=== PATIENT | female | born 1950 | race Caucasian/White ===

== ENCOUNTER 2017-09-14 11:52 | Inpatient (IN) ==
[2017-09-14] MEDS ORDERED: methylPREDNISolone 125 MG/2 ML VIAL IVP ONE (12:06)
[2017-09-14] MEDS ORDERED: Ipratropium/Albuterol Neb 3 ML IH ONE (12:06)
--- NOTE | 2017-09-14 12:21 | Emergency Department Note ---
Disposition Clinical Impression: Community acquired pneumonia Disposition: Admitted As Inpatient Condition: Good Referrals: Freddy Swann Jr, MD [Primary Care Provider] - Forms: ED Satisfaction Letter SOB HPI - General Chief Complaint: ED Shortness of Breath/Dyspnea Stated Complaint: LETICIA Time Seen by Provider: 09/14/17 11:57 Source: patient Mode of arrival: private vehicle Limitations: no limitations Nursing Notes Reviewed: Yes Vital Signs Reviewed: Yes - History of Present Illness 66-year-old female history of COPD on chronic steroids and Zithromax who presents to the ER due to shortness of breath. Patient reports she has had shortness of breath as well as a cough for 10 days. Denies any fevers at home. Denies chest pain. States that she has been desaturating at home and to the 70s. She does wear 2 L at night. She spoke with her nutrition and dietetics instructor who encouraged her to come in for evaluation. She denies a prior history of intubation, CPAP or BiPAP. Denies history of DVT or PE. No other complaints. Pt Subjective Complaint: shortness of breath, cough Onset (ago): day(s) Context: recent illness Severity: moderate Consistency/Duration: constant Improves with: nothing Worsens with: nothing Known history of: COPD Associated symptoms: Reports: cough. Denies: chest pain, fever Treatment prior to arrival: bronchodilator Cough present: Yes Cough Description: Involuntary Cough Frequency: Intermittent Sputum production: No - Related Data Home oxygen amount: 2 liters (At night) Home Medications Medication Instructions Recorded Confirmed Albuterol Sulfate [Proair HFA] 2 puff IH Q4HR PRN 07/08/15 09/14/17 Budesonide/Formoterol 160/4.5 2 puff IH BIDR 07/08/15 09/14/17 [Symbicort] Calcium Carbonate 1,200 mg PO BID 07/08/15 09/14/17 Ipratropium/Albuterol Neb [Duoneb] 3 ml IH Q6HR PRN 07/08/15 09/14/17 Multivitamin [Flintstones] 1 each PO DAILY 07/08/15 09/14/17 Biotin 1 tab PO DAILY 08/28/16 09/14/17 Fluticasone Propionate Nasal 1 spray NS BID 08/28/16 09/14/17 [Flonase] Potassium 595 mg PO DAILY 08/28/16 09/14/17 Triamterene/Hydrochlorothiazid 1 tab PO DAILY 08/28/16 09/14/17 [Triamterene-Hctz 37.5-25 mg Cp] Umeclidinium [place] [Incruse 1 puff IH DAILY 08/28/16 09/14/17 Ellipta] Azithromycin [Zithromax] 250 mg PO DAILY 09/05/16 09/14/17 Loteprednol Etabonate [Alrex] 1 drop BOTH EYES BID 09/14/17 09/14/17 Roflumilast [Daliresp] 500 mcg PO DAILY 09/14/17 09/14/17 predniSONE [PredniSONE] See Taper PO DAILY 09/14/17 09/14/17 Allergies Allergy/AdvReac Type Severity Reaction Status Date / Time octinoxate Allergy Mild Rash Verified 08/28/16 08:26 sodium bicarbonate Allergy Unknown Gastrointestinal Verified 08/28/16 08:26 [From [facility]] Upset aspirin [From [place]] AdvReac Mild Nausea Verified 08/28/16 08:26 citric acid AdvReac Mild Nausea Verified 08/28/16 08:26 [From [place]] All systems ED: reviewed and negative except as stated. Constitutional: Denies: fever Cardiovascular: Denies: chest pain Respiratory: Reports: cough, dyspnea Gastrointestinal: Denies: abdominal pain, nausea, vomiting Past Medical History - Past Medical History Attestation: Yes The following information was validated with the patient. Source: patient Medical history: Reports: arthritis, cancer, COPD Surgical history: Reports: other Psychiatric history: Reports: no psych history - Social History Smoking Status: Never smoker Smokeless Tobacco Status: No Alcohol use: Reports: occasionally Drug use: Reports: none Physical Exam - General Limitations: no limitations General appearance: alert, in no apparent distress - Head Head exam: atraumatic, normocephalic - Eye Eye exam: Present: normal appearance - ENT ENT exam: normal exam - Neck Neck exam: Present: normal inspection, full ROM - Chest Chest inspection: Present: normal inspection, symmetric chest wall rise - Respiratory Respiratory exam: Present: wheezes (Mild end-expiratory wheezing right greater than left), prolonged expiratory phase - Cardiovascular Cardiovascular exam: Present: normal rhythm, tachycardia, normal heart sounds - Abdominal Exam Abdominal exam: Present: soft, Non-Tender. Absent: tenderness - Extremities Exam Extremities exam: Present: normal inspection, full ROM - Expanded Upper Extremity Exam Shoulder exam: Present: normal inspection, full ROM Arm exam: Present: normal inspection, full ROM Elbow exam: Present: normal inspection, full ROM Forearm/Wrist exam: Present: normal inspection, full ROM Hand exam: Present: normal inspection, full ROM - Expanded Lower Extremity Exam Hip/Pelvis exam: Present: normal inspection, full ROM Upper leg exam: Present: normal inspection, full ROM Knee exam: Present: normal inspection, full ROM Lower leg exam: Present: normal inspection, full ROM Ankle exam: Present: normal inspection, full ROM Foot/toe exam: Present: normal inspection, full ROM - Neurological Exam Neurological exam: Present: alert, other (GCS 15. Nonfocal.) - Psychiatric Psychiatric exam: Present: normal affect - Skin Skin exam: Present: warm, dry Course Course Narrative: Patient seen and examined. Vital signs reviewed. We will order DuoNeb treatments as well as IV Solu-Medrol, EKG chest x-ray and labs. Vital Signs Temperature 99.0 F 09/14/17 11:53 Pulse Rate 113 09/14/17 11:53 Respiratory Rate 26 09/14/17 11:53 Blood Pressure 154/85 09/14/17 11:53 O2 Sat by Pulse Oximetry 93 09/14/17 11:53 Temperature 99.0 F 09/14/17 11:53 Pulse Rate 89 09/14/17 16:25 Respiratory Rate 16 09/14/17 16:25 Blood Pressure 129/68 09/14/17 16:25 O2 Sat by Pulse Oximetry 94 09/14/17 16:25 Oxygen Delivery Oxygen Delivery Room Air Shortness of Breath/Dyspnea - [facility] Narrative Medical decision making narrative: 66-year-old female history of COPD presents to the ER due to shortness of breath or cough. Has been on chronic steroids and followed by pulmonology here. Patient was evaluated by pulmonology in the ED recommending a respiratory panel and CT of the chest. CTA demonstrates no PE however bilateral lower lobe infiltrates. Patient given a dose of Levaquin. She is otherwise hemodynamically stable and admitted to the hospitalist service with pulmonology consultation. This documentation is done with the assistance of Dragon dictation. Despite efforts to ensure accuracy, there may be inaccuracies in drop forger helper or spelling and typographical errors. I examined this patient and my medical decision-making was reviewed with the Resident Physician. I agree with the documented findings, disposition and treatment plan as described except to the extent set forth below. Patient seen and evaluated by Dr. Villarreal and myself, agree with his admission management plan, supervised care the patient's stay. Patient has a long history of COPD. Last week she has been having increased coughing. She is on daily prednisone and azithromycin. She sees pulmonology here. Start treatments on her here. Pulmonology said they would see her in the emergency department. Most likely she will need admission. 1245 hrs.: Wire Strander seen the patient emergency department. They wanted an RIP panel, CT of the chest rule out PE and a low dose of steroids. Chest X-Ray 09/14/17 11:57 IMPRESSION: Subtle left basilar opacity that may represent atelectasis versus early pneumonia. Recommend clinical correlation and follow-up to resolution. Findings of COPD and emphysema. D/ / Patricio Main MD / Patricio Main MD Interpreting Provider: Patricio Main MD Chest CTA 09/14/17 12:36 IMPRESSION: 1. No acute pulmonary embolus. 2. Patchy consolidation in both lower lobes concerning for pneumonia. Aspiration should be considered. 3. Moderate emphysema. D/ / 09/14/2017 14:46:10 Panchito Hogan MD / hector Interpreting Provider: Panchito Hogan MD 1500 hrs.: We will go ahead and bring her into the hospital. She has been on chronic azithromycin so we will switch her to Levaquin. And we will speak with hospitalist and probably consult pulmonology. Patient's in agreement with plan for admission. - Lab Data Lab results reviewed: Yes I reviewed the patient's lab results. Result diagrams: 09/14/17 12:19 09/14/17 12:19 Lab Results 09/14/17 09/14/17 09/14/17 Range/Units 12:19 12:19 12:19 WBC 17.8 H (4.3-11.1) K/mcL RBC 4.74 (3.82-4.97) M/mcL Hgb 15.8 H (11.5-15.4) g/dL Hct 45.7 H (35.3-44.9) % MCV 96.4 (83.0-100.0) fL MCH 33.3 (28.0-33.3) pg MCHC 34.6 (31.6-35.5) g/dL RDW 12.4 (11.5-14.5) % Plt Count 243 (140-400) K/mcL MPV 9.1 L (9.4-12.4) fL Immature Gran % 0.6 (0-4) % Seg Neutrophils % 94.0 % Lymphocytes % 1.5 % Monocytes % 3.7 % Eosinophils % 0.0 % Basophils % 0.2 % Neutrophils # 16.7 H (1.6-8.9) K/mcL Lymphocytes # 0.3 L (0.6-4.6) K/mcL Monocytes # 0.7 (0.0-1.3) K/mcL Eosinophils # 0.0 (0.0-0.6) K/mcL Basophils # 0.0 (0.0-0.2) K/mcL Sodium 134 L (136-145) mEq/L Potassium 3.5 (3.5-5.1) mEq/L Chloride 97 L (98-107) mEq/L Carbon Dioxide 27 (23-29) mEq/L BUN 12 (8-23) mg/dL Creatinine 0.89 (0.60-1.20) mg/dL Est GFR ( Amer) > 60 (> 60) Est GFR (Non-Af Amer) > 60 (> 60) BUN/Creatinine Ratio 13 (6-26) Glucose 182 H (70-105) mg/dL Calculated Osmolality 282 (280-300) Calcium 10.4 H (8.6-10.3) mg/dL Troponin I < 0.03 (< 0.04) ng/mL B-Natriuretic Peptide (Less than 100) pg/mL 09/14/17 Range/Units 12:19 WBC (4.3-11.1) K/mcL RBC (3.82-4.97) M/mcL Hgb (11.5-15.4) g/dL Hct (35.3-44.9) % MCV (83.0-100.0) fL MCH (28.0-33.3) pg MCHC (31.6-35.5) g/dL RDW (11.5-14.5) % Plt Count (140-400) K/mcL MPV (9.4-12.4) fL Immature Gran % (0-4) % Seg Neutrophils % % Lymphocytes % % Monocytes % % Eosinophils % % Basophils % % Neutrophils # (1.6-8.9) K/mcL Lymphocytes # (0.6-4.6) K/mcL Monocytes # (0.0-1.3) K/mcL Eosinophils # (0.0-0.6) K/mcL Basophils # (0.0-0.2) K/mcL Sodium (136-145) mEq/L Potassium (3.5-5.1) mEq/L Chloride (98-107) mEq/L Carbon Dioxide (23-29) mEq/L BUN (8-23) mg/dL Creatinine (0.60-1.20) mg/dL Est GFR ( Amer) (> 60) Est GFR (Non-Af Amer) (> 60) BUN/Creatinine Ratio (6-26) Glucose (70-105) mg/dL Calculated Osmolality (280-300) Calcium (8.6-10.3) mg/dL Troponin I (< 0.04) ng/mL B-Natriuretic Peptide 69 (Less than 100) pg/mL - Radiology Data Radiology results reviewed: Yes I reviewed the patient's radiology results. Chest X-Ray 09/14/17 11:57 IMPRESSION: Subtle left basilar opacity that may represent atelectasis versus early pneumonia. Recommend clinical correlation and follow-up to resolution. Findings of COPD and emphysema. D/ / Patricio Main MD / Patricio Main MD Interpreting Provider: Patricio Main MD Chest CTA 09/14/17 12:36 IMPRESSION: 1. No acute pulmonary embolus. 2. Patchy consolidation in both lower lobes concerning for pneumonia. Aspiration should be considered. 3. Moderate emphysema. D/ / 09/14/2017 14:46:10 Panchito Hogan MD / raisarttalita Interpreting Provider: Panchito Hogan MD - EKG Data EKG attestation: Yes I reviewed and interpreted this EKG. EKG results narrative: EKG demonstrates sinus tachycardia with rate of 103. Normal axis. Normal intervals. Normal R-wave progression. No gross ST elevations or depressions. No acute ischemic findings. No significant changes from previous EKG dated .
[2017-09-14 12:26] LABS: Basophils % 0.2 %; Hematocrit 45.7 % (35.3-44.9); Hemoglobin 15.8 g/dL (11.5-15.4); Immature Granulocytes % 0.6 % (0-4); Lymphocytes # 0.3 K/mcL (0.6-4.6); Lymphocytes % 1.5 %; Mean Corpuscular HGB Conc 34.6 g/dL (31.6-35.5); Mean Corpuscular Hemoglobin 33.3 pg (28.0-33.3); Mean Corpuscular Volume 96.4 fL (83.0-100.0); Mean Platelet Volume 9.1 fL (9.4-12.4); Monocytes # 0.7 K/mcL (0.0-1.3); Monocytes % 3.7 %; Neutrophils # 16.7 K/mcL (1.6-8.9); Platelet Count 243 K/mcL (140-400); Red Blood Count 4.74 M/mcL (3.82-4.97); Red Cell Distribution Width 12.4 % (11.5-14.5)
[2017-09-14] MEDS ORDERED: 0.9 % Sodium Chloride 500 ML IVC ONE (12:37)
[2017-09-14 12:42] LABS: BUN/Creatinine Ratio 13 (6-26); Blood Urea Nitrogen 12 mg/dL (8-23); Calcium 10.4 mg/dL (8.6-10.3); Carbon Dioxide 27 mEq/L (23-29); Chloride 97 mEq/L (98-107); Glucose 182 mg/dL (70-105); Osmolality,Calculated 282 (280-300); Potassium 3.5 mEq/L (3.5-5.1); Sodium 134 mEq/L (136-145); eGFR For African Americans > 60 (> 60); eGFR For Non-African Americans > 60 (> 60)
--- NOTE | 2017-09-14 12:50 | Pulmonology Consult Note ---
Date of Encounter: 09/14/17 Time of Encounter: 12:49 Assessment and Plan (1) Acute and chronic respiratory failure with hypoxia Current Visit: Yes Status: Acute I suspect this is secondary to COPD exacerbation from likely Infectiou etiology. Given Dyspnea and hypoxia and tachycardia (in context of COPD exacerbation she is also at risk for pulmonary embolism. Plan checking kidney function and normal would proceed with CTA of the lungs to rule out PE was also lost to further evaluate underlying lung parenchyma Send respiratory infectious panel Send sputum and blood cultures Recommend starting empiric ceftriaxone or respiratory respiratory fluoroquinolone such as levaquin Continue supplemental oxygen to keep saturation greater than 88% to around 92% Recommend admission to admitting hospitalist service for further evaluation given chronicity/severity of symptoms CT PE negative would need routine DVT prophylaxis unless contraindication arises Further recommendations depending upon CT findings (2) COPD with exacerbation Current Visit: Yes Status: Acute Start IV Solu-Medrol 60 mg 3 times a day Scheduled dual meds every 4 hours with every one hour albuterol as needed Start acetylcysteine 600 mg PO twice a day Hold azithromycin (3) Tachycardia Current Visit: Yes Status: Acute Severe sinus and is likely related to anxiety hypoxia work of breathing. She is at risk for PE and cardiac causes of dyspnea as outlined above recommend checking troponin and BNP if not already done so Pulmonary will continue to follow History of Present Illness Consult date: 09/14/17 Requesting physician: Dieter Villarreal Reason for consult: COPD Chief complaint: Shortness of Breath History of present illness: This is a 66-year-old woman with a history of advanced COPD on multiple medications for severe chronic bronchitis include Daliresp and chronic azithromycin therapy. Over the last 10 days she says that she has felt increasing shortness of breath and has noticed that her oxygen saturation has been dropping down with exertion including going up and down stairs. About this time she was started on 40 mg of prednisone daily and despite this therapy she has not improved. She denies sick contacts fever chills she has no sick cough but not productive of sputum. She denies sick contacts or recent travel no hemoptysis weight loss or lower extremity swelling she denies chest pain. I daily the patient emergency department she is requiring 2-3 L to keep saturation around 93-95% she is tachycardic and appears dyspneic on exam but able to speak in full sentences. Past Med Surg Social Fam HX - Past Medical History Medical history: arthritis, cancer, COPD Psychiatric history: no psych history - Past Surgical History Surgical History: other - Social History Smoking Status: Never smoker Smokeless Tobacco Status: No Alcohol use: occasionally Drug use: none - Family History Son Adopted: No Family Member Ethnicity: Non- Living Status: Still Living Hx Family Cardiac Disorders: Yes Hx Family Respiratory Disorders: No Hx Family Cancer: No Hx Family GI Disorders: No Hx Family Endocrine Disorder: No Hx Family Neuromuscular Disorders: No Hx Family Neurologic Disorders: No Hx Family HEENT Disorders: No Hx Family Autoimmune Disorders: No Medications and Allergies Albuterol Sulfate [Proair HFA] 2 puff IH Q4HR PRN 07/08/15 [History] Budesonide/Formoterol 160/4.5 [Symbicort] 2 puff IH BIDR 07/08/15 [History] Calcium Carbonate 1,200 mg PO BID 07/08/15 [History] Ipratropium/Albuterol Neb [Duoneb] 3 ml IH Q6HR PRN 07/08/15 [History] Multivitamin [Flintstones] 1 each PO DAILY 07/08/15 [History] Ammonium Lactate [Mansi-Hydrolac] 1 appl TP BID 08/28/16 [History] Biotin 1 tab PO DAILY 08/28/16 [History] Fluticasone Propionate Nasal [Flonase] 1 spray NS BID 08/28/16 [History] Potassium 595 mg PO DAILY 08/28/16 [History] PrednisoLONE [Millipred] 10 mg PO DAILY 08/28/16 [History] Triamterene/Hydrochlorothiazid [Triamterene-Hctz 37.5-25 mg Cp] 1 tab PO DAILY 08/28/16 [History] Umeclidinium [place] [Incruse Ellipta] 1 puff IH DAILY 08/28/16 [History] Azithromycin [Zithromax] 250 mg PO DAILY 09/05/16 [History] Vitamin C 500 mg PO DAILY 09/05/16 [History] 3 Allergy/AdvReac Type Severity Reaction Status Date / Time octinoxate Allergy Mild Rash Verified 08/28/16 08:26 sodium bicarbonate Allergy Unknown Gastrointestinal Verified 08/28/16 08:26 [From [facility]] Upset aspirin [From [facility]] AdvReac Mild Nausea Verified 08/28/16 08:26 citric acid AdvReac Mild Nausea Verified 08/28/16 08:26 [From Cj] All Systems: A 10-system review of systems was performed and is negative for pertinent findings except as documented above in the HPI. Physical Examination Vital Signs: Vital Signs, Last 4 Hours Temp Pulse Resp BP Pulse Ox 09/14/17 12:45 16 97 09/14/17 12:27 92 18 129/60 93 09/14/17 12:06 94 09/14/17 11:53 99.0 F 113 26 154/85 93 General appearance: appears uncomfortable Eyes: nonicteric ENT: oropharynx dry Neck: supple Effort: mildly labored Auscultation: bilateral: wheezes (Faint expiratory wheezes), rhonchi (Scattered rhonchi appreciated) Cardiovascular: other (Rapid rate regular rhythm) Gastrointestinal: normoactive bowel sounds, soft, non-tender Integumentary: normal Extremities: no cyanosis, no edema, no clubbing Musculoskeletal: no deformities normal mental status, non-focal exam Results - Laboratory Findings CBC and BMP: 09/14/17 12:19 09/14/17 12:19 Abnormal lab findings: Abnormal lab results WBC 17.8 K/mcL (4.3-11.1) H 09/14/17 12:19 Hgb 15.8 g/dL (11.5-15.4) H 09/14/17 12:19 Hct 45.7 % (35.3-44.9) H 09/14/17 12:19 MPV 9.1 fL (9.4-12.4) L 09/14/17 12:19 Neutrophils # 16.7 K/mcL (1.6-8.9) H 09/14/17 12:19 Lymphocytes # 0.3 K/mcL (0.6-4.6) L 09/14/17 12:19 Sodium 134 mEq/L (136-145) L 09/14/17 12:19 Chloride 97 mEq/L (98-107) L 09/14/17 12:19 Glucose 182 mg/dL (70-105) H 09/14/17 12:19 Calcium 10.4 mg/dL (8.6-10.3) H 09/14/17 12:19 - Clinical Findings Intake & Output: Intake & Output 09/13/17 09/14/17 09/14/17 23:59 07:59 15:59 Weight 65.771 kg Consult Discharge Plan - Plan Referrals: Freddy Swann Jr, MD [Primary Care Provider] -
[2017-09-14] MEDS ORDERED: Ibuprofen 600 MG TABLET PO ONE (13:30)
[2017-09-14] MEDS ORDERED: Levofloxacin 750 MG/150 ML 750 MG/150 ML BAG IVPB ONE (14:56)
--- NOTE | 2017-09-14 16:19 | Internal Med History&Physical ---
Date of Encounter: 10/12/17 Time of Encounter: 16:19 Assessment and Plan (1) Acute and chronic respiratory failure with hypoxia Status: Acute Most likely secondary to COPD exacerbation from likely Infectious etiology. CTA of the lungs to rule out PE was obtained and revealed , No acute pulmonary embolus. Patchy consolidation in both lower lobes concerning for pneumonia. Aspiration should be considered. Moderate emphysema.also lost to further evaluate underlying lung parenchyma Obtain sputum and blood cultures Started on empiric antibiotic coverage levaquin Continue supplemental oxygen to keep saturation greater than 88% to around 92% (2) Community acquired pneumonia Status: Acute *Pneumonia - infiltrate on CTA - O2 to keep SpO2 higher than 92% (SpO higher than 95% if CAD) - CBCD, BMP in AM - Sputum Gram stain, C+S - Tylenol 650 mg PO q 4-6 hr PRN pain/fever - Heparin 5000 U SQ BID - Home meds - check the list and restart - Antibiotics Qualifiers: Laterality: unspecified laterality Qualified Code(s): J18.9 - Pneumonia, unspecified organism (3) COPD with exacerbation Status: Acute - SOB due to COPD exacerbation caused by URTI *Pneumonia - infiltrate on CTA PLAN: - Aerosols q 4 hr and PRN SOB - Solu-medrol 40 mg IV q 6 hr - O2 to keep SpO2 higher than 92% (SpO higher than 95% if CAD) - CBCD, BMP in AM - Sputum Gram stain, C+S - Tylenol 650 mg PO q 4-6 hr PRN pain/fever - Heparin 5000 U SQ BID - Home meds - check the list and restart - Antibiotics (4) Tachycardia Status: Resolved CTA of the chest was ordered to rule out PE and was negative, (5) DVT prophylaxis Status: Acute Starting subcutaneous heparin 5000 units twice a day Internal Medicine - H&P: HPI Chief complaint: SOB History of present illness: Ms. Mobley is a 66 year old female with a history of advanced COPD on multiple medications for severe chronic bronchitis include Daliresp and chronic azithromycin therapy who presented with 10 days history of progressively worsening shortness of breath associated with nonproductive cough and hypoxia specifically with exertion . She was started an outpatient on 40 mg of prednisone daily with no significant improvement. . She was evaluated by the ER staff and it was noted that she is requiring 2-3 L to keep saturation around 93-95% and tachycardia, the patient was admitted for further evaluation and management. Past Med Surg Social Fam HX - Past Medical History Medical history: arthritis, cancer, COPD Psychiatric history: no psych history - Past Surgical History Surgical History: other - Social History Smoking Status: Never smoker Smokeless Tobacco Status: No Alcohol use: occasionally Drug use: none - Family History Son Adopted: No Family Member Ethnicity: Non- Living Status: Still Living Hx Family Cardiac Disorders: Yes Hx Family Respiratory Disorders: No Hx Family Cancer: No Hx Family GI Disorders: No Hx Family Endocrine Disorder: No Hx Family Neuromuscular Disorders: No Hx Family Neurologic Disorders: No Hx Family HEENT Disorders: No Hx Family Autoimmune Disorders: No Internal Medicine - H&P: Meds Albuterol Sulfate [Albuterol Inhaler] 2 puff IH Q4HR PRN 07/08/15 [History] Budesonide/Formoterol 160/4.5 [Symbicort 160/4.5] 2 puff IH BIDR 07/08/15 [ History] Calcium Carbonate 1,200 mg PO DAILY 07/08/15 [History] Ipratropium/Albuterol Neb [Duoneb] 3 ml IH Q6HR PRN 07/08/15 [History] Multivitamin [Flintstones] 1 each PO DAILY 07/08/15 [History] Biotin 1 tab PO DAILY 08/28/16 [History] Fluticasone Propionate Nasal [Flonase] 1 spray NS BID 08/28/16 [History] Potassium 99 mg PO DAILY 08/28/16 [History] Triamterene/Hydrochlorothiazid [Triamterene-Hctz 37.5-25 mg Cp] 1 tab PO DAILY 08/28/16 [History] Umeclidinium [place] [Incruse Ellipta] 1 puff IH DAILY 08/28/16 [History] Loteprednol Etabonate [Alrex] 1 drop BOTH EYES BID 09/14/17 [History] Roflumilast [Daliresp] 500 mcg PO DAILY 09/14/17 [History] Azithromycin 250 mg PO DAILY #0 09/29/17 [Rx] Doxycycline 100 mg PO BID #9 capsule 09/29/17 [Rx] Patient Taking Own Medication 1 each OP BID each 09/29/17 [Rx] predniSONE [PredniSONE] 40 mg PO DAILY 15 Days tablet 09/29/17 [Rx] 3 Allergy/AdvReac Type Severity Reaction Status Date / Time octinoxate Allergy Mild Rash Verified 09/24/17 14:40 aspirin [From [facility]] AdvReac Mild Nausea Verified 09/24/17 14:40 citric acid AdvReac Mild Nausea Verified 09/24/17 14:40 [From [facility]] sodium bicarbonate AdvReac Unknown Gastrointestinal Verified 09/24/17 14:40 [From [facility]] Upset All Systems PM: A 10-system review of systems was performed and is negative for pertinent findings except as documented above in the HPI. - Constitutional Constitutional: fatigue, no chills, no fever(s), no night sweats - Cardiovascular Cardiovascular ROS IM: dyspnea, no chest pain, no diaphoresis, no lightheadedness, no palpitations, no syncope - Respiratory Respiratory: cough, dyspnea, wheezing, no excessive phlegm production - Gastrointestinal Gastrointestinal: no abdominal pain, no diarrhea, no hematemesis, no hematochezia, no melena, no nausea, no vomiting - Neurological Neurological ROS: no confusion, no convulsions, no focal weakness, no numbness, no tingling, no tremor(s) - Constitutional Vitals: Temp Pulse Resp BP Pulse Ox 99.0 F 99 20 127/48 93 09/14/17 11:53 09/14/17 13:42 09/14/17 13:42 09/14/17 13:42 09/14/17 13:42 General appearance: Present: A&O X 3 - Head Head exam: Present: atraumatic, normocephalic - Neck Neck exam general surgery: Present: supple, trachea midline. Absent: lymphadenopathy - Respiratory Respiratory exam: Present: rhonchi, wheezes. Absent: accessory muscle use, rales - Cardiovascular Cardiovascular exam: Present: RRR, +S1, +S2. Absent: diastolic murmur, gallop, rubs, systolic murmur - GI/Abdominal GI/Abdominal exam: Present: normal bowel sounds, soft, no peritoneal signs. Absent: distended, tenderness - Extremities Exam Extremities exam: Present: warm, radial pulses palpable and symmetrical. Absent : calf tenderness, cyanotic, pedal edema Internal Med - H&P Results - Labs CBC & Chem 7: 09/16/17 07:05 09/16/17 07:05 Labs: Short CBC 09/14/17 Range/Units 12:19 WBC 17.8 H (4.3-11.1) K/mcL Hgb 15.8 H (11.5-15.4) g/dL Hct 45.7 H (35.3-44.9) % Plt Count 243 (140-400) K/mcL Neutrophils # 16.7 H (1.6-8.9) K/mcL BMP 09/14/17 12:19 Sodium 134 L Potassium 3.5 Chloride 97 L Carbon Dioxide 27 BUN 12 Creatinine 0.89 Glucose 182 H Calcium 10.4 H Cardiac Enzymes 09/14/17 Range/Units 12:19 Troponin I < 0.03 (< 0.04) ng/mL - Impressions ITS Impressions Chest X-Ray 09/14/17 11:57 IMPRESSION: Subtle left basilar opacity that may represent atelectasis versus early pneumonia. Recommend clinical correlation and follow-up to resolution. Findings of COPD and emphysema. D/ / Patricio Main MD / Patricio Main MD Interpreting Provider: Patricio Main MD Chest CTA 09/14/17 12:36 IMPRESSION: 1. No acute pulmonary embolus. 2. Patchy consolidation in both lower lobes concerning for pneumonia. Aspiration should be considered. 3. Moderate emphysema. D/ / 09/14/2017 14:46:10 Panchito Hogan MD / hector Interpreting Provider: Panchito Hogan MD
[2017-09-14] MEDS: Ipratropium/Albuterol Neb 3 ML IH SCH ×2 (20:05→23:11)
[2017-09-14] MEDS: Fluticasone Propionate Nasal 50 MCG/SPRAY BOTTLE NS SCH (21:02)
[2017-09-14] MEDS: LOTEPREDNOL ETABONATE OP SCH (21:04)
[2017-09-14 22:16] LABS: Adenovirus Not Detected (Not Detect); Bordetella Pertussis Not Detected (Not Detect); Chlamydophila pneumoniae Not Detected (Not Detect); Coronavirus 229E Not Detected (Not Detect); Coronavirus HKU1 Not Detected (Not Detect); Coronavirus NL63 Not Detected (Not Detect); Coronavirus OC43 Not Detected (Not Detect); Human Metapneumovirus Not Detected (Not Detect); Human Rhinovirus/Enterovirus Not Detected (Not Detect); Influenza A Subtype 2009 H1 Not Detected (Not Detect); Influenza A Untypeable Not Detected (Not Detect); Influenza B Not Detected (Not Detect); Mycoplasma pneumoniae Not Detected (Not Detect); Parainfluenza Virus 1 Not Detected (Not Detect); Parainfluenza Virus 2 Not Detected (Not Detect); Parainfluenza Virus 3 Not Detected (Not Detect); Parainfluenza Virus 4 Not Detected (Not Detect); Respiratory Syncytial Virus Not Detected (Not Detect)
[2017-09-14] MEDS: Budesonide/Formoterol 160/4.5 MDI IH SCH (23:11)
[2017-09-15] MEDS: Ipratropium/Albuterol Neb 3 ML IH SCH ×3 (04:01→15:59)
[2017-09-15 04:21] LABS: Basophils % 0.1 %; Hematocrit 44.6 % (35.3-44.9); Hemoglobin 15.3 g/dL (11.5-15.4); Immature Granulocytes % 0.5 % (0-4); Lymphocytes # 0.3 K/mcL (0.6-4.6); Lymphocytes % 3.3 %; Mean Corpuscular HGB Conc 34.3 g/dL (31.6-35.5); Mean Corpuscular Hemoglobin 33.7 pg (28.0-33.3); Mean Corpuscular Volume 98.2 fL (83.0-100.0); Mean Platelet Volume 9.6 fL (9.4-12.4); Monocytes # 0.5 K/mcL (0.0-1.3); Monocytes % 4.6 %; Neutrophils # 8.9 K/mcL (1.6-8.9); Platelet Count 240 K/mcL (140-400); Red Blood Count 4.54 M/mcL (3.82-4.97); Red Cell Distribution Width 12.4 % (11.5-14.5); Segmented Neutrophils % 91.5 %
[2017-09-15 04:35] LABS: Chloride 101 mEq/L (98-107); Potassium 3.4 mEq/L (3.5-5.1); Sodium 138 mEq/L (136-145)
[2017-09-15 05:05] LABS: Alanine Aminotransferase 20 Units/L (7-52); Albumin 3.8 g/dL (3.5-5.7); Albumin/Globulin Ratio 1.5 (1.1-2.2); Alkaline Phosphatase 68 Units/L (34-104); Aspartate Amino Transferase 17 Units/L (13-39); BUN/Creatinine Ratio 17 (6-26); Bilirubin,Total 0.5 mg/dL (0.3-1.0); Blood Urea Nitrogen 14 mg/dL (8-23); Calcium 9.7 mg/dL (8.6-10.3); Carbon Dioxide 25 mEq/L (23-29); Glucose 148 mg/dL (70-105); Osmolality,Calculated 289 (280-300); Total Protein 6.4 g/dL (6.4-8.9); eGFR For African Americans > 60 (> 60); eGFR For Non-African Americans > 60 (> 60)
[2017-09-15 05:06] LABS: Globulin 2.6 g/dL (2.4-3.5)
--- NOTE | 2017-09-15 06:52 | Pulmonology Progress Note ---
Date of Encounter: 09/15/17 Time of Encounter: 06:52 Assessment and Plan (1) Acute and chronic respiratory failure with hypoxia Current Visit: Yes Status: Acute Wean Fio2 to keep sat >88-92% Home regimen is nocturnal need only. OOBTC today. Ambulation. Incentive Spirometry (2) COPD with exacerbation Current Visit: Yes Status: Acute Stop IV steroids. Start Prednisone 40mg with slow taper Cont Scheduled BD's while in house Resume home COPD regimen at d/c F/u Pulmonary (3) Pneumonia Current Visit: Yes Status: Acute On levaquin WBC count improving Send Sputum/Blood cultures if not obtained Plan to treat for 7 days based upon clinical course Ok to transition to PO Qualifiers: Qualified Code(s): J18.9 - Pneumonia, unspecified organism Subjective Principal diagnosis: PNA Interval history: Feels better today. She does endorse some difficulty in sleeping related to IV steroid. Resp Infec Panel negative. CTA negative for PE but showed bibasliar PNA. started on levaquin. WBC count normalized overnight. Objective PUL Vital signs: Last Vital Signs Temp 98 F 09/15/17 05:05 Pulse 89 09/15/17 05:05 Resp 16 09/15/17 05:05 BP 125/70 09/15/17 05:05 Pulse Ox 97 09/15/17 05:05 General appearance: no acute distress Effort: normal Auscultation: bilateral: rhonchi (scatered no wheeze) Cardiovascular: regular rate and rhythm Extremities: no cyanosis, no edema, no clubbing normal mental status, non-focal exam Results - Laboratory Findings CBC and BMP: 09/15/17 02:48 09/15/17 02:48 Abnormal lab findings: Abnormal lab results MCH 33.7 pg (28.0-33.3) H 09/15/17 02:48 Lymphocytes # 0.3 K/mcL (0.6-4.6) L 09/15/17 02:48 Potassium 3.4 mEq/L (3.5-5.1) L 09/15/17 02:48 Glucose 148 mg/dL (70-105) H 09/15/17 02:48 - Diagnostic Findings CT scan - chest: report reviewed, image reviewed - Clinical Findings Intake & Output: Intake & Output 09/14/17 09/14/17 09/15/17 15:59 23:59 07:59 Weight 66 kg Consult Discharge Plan - Plan Referrals: Freddy Swann Jr, MD [Primary Care Provider] -
--- NOTE | 2017-09-15 08:39 | Electrocardiograph Report ---
[facility] Test Date: 2017-09-14 [facility] Department: 103 Room: 2A37 Gender: F Uniformer: PANCHO : 1950 Requested By: Sebastian Mejia Order Number: [id number] Reading MD: Don Montero MD Measurements Intervals [place] Rate: 103 P: 65 MT: 131 QRS: 68 QRSD: 78 T: 58 QT: 318 QTc: 377 Interpretive Statements SINUS TACHYCARDIA ABNORMAL RHYTHM ECG Electronically Signed On 09-15-2017 8:37:14 EST by Don Montero MD
[2017-09-15] MEDS ORDERED: Levofloxacin 500 MG/100 ML 500 MG/100 ML BAG IVPB SCH (09:00)
[2017-09-15] MEDS: BIOTIN PO SCH (09:38)
[2017-09-15] MEDS: (Umeclidinium Bromide [Incruse Ellipta] 1 PUFF) IH SCH ×2 (09:38→13:38)
[2017-09-15] MEDS: POTASSIUM 595 MG PO SCH (09:38)
[2017-09-15] MEDS: (Roflumilast [Daliresp] 500 MCG) PO SCH ×2 (09:38→13:38)
[2017-09-15] MEDS: LOTEPREDNOL ETABONATE OP SCH ×2 (09:40→22:10)
[2017-09-15] MEDS: Multivit/Ca/Min/Fe/FA 1 TAB TABLET PO SCH (09:41)
[2017-09-15] MEDS: Fluticasone Propionate Nasal 50 MCG/SPRAY BOTTLE NS SCH ×2 (09:42→22:10)
[2017-09-15] MEDS: Budesonide/Formoterol 160/4.5 MDI IH SCH (11:07)
--- NOTE | 2017-09-15 12:23 | Internal Med Progress Note ---
Date of Encounter: 09/15/17 Time of Encounter: 10:55 - Assessment and plan (1) Acute and chronic respiratory failure with hypoxia Current Visit: Yes Status: Acute Assessment and plan: Secondary to pneumonia and COPDE Continue O2, wean to home dose (2) COPD with exacerbation Current Visit: Yes Status: Acute Assessment and plan: Continue duonebs, steroids, antibitoics Pulm eval appreciated (3) Tachycardia Current Visit: Yes Status: Resolved Assessment and plan: Resolved, sinus CTA ruled out PE (4) Community acquired pneumonia Current Visit: Yes Status: Acute Assessment and plan: Continue levaquin Unable to make sputum Blood cultre pending report Qualifiers: Laterality: unspecified laterality Qualified Code(s): J18.9 - Pneumonia, unspecified organism (5) DVT prophylaxis Current Visit: Yes Status: Acute Assessment and plan: Heparin, ambulate (6) Hypokalemia Current Visit: Yes Status: Acute Assessment and plan: replaced, repeat Chem am - Constitutional Vitals: Temp Pulse Resp BP Pulse Ox 98.4 F 83 16 119/75 100 09/15/17 10:38 09/15/17 10:38 09/15/17 11:09 09/15/17 10:38 09/15/17 11:09 General appearance: Present: A&O X 3, pleasant, no acute distress - Head Head exam: Present: atraumatic, normocephalic - Eye Eye exam: Present: PERRL, conjuntiva pink, sclera anicteric Pupils: Present: PERRL - Neck Neck exam general surgery: Present: supple, trachea midline. Absent: lymphadenopathy - Respiratory Respiratory exam: Present: CTAB. Absent: accessory muscle use, rales, rhonchi, wheezes - Cardiovascular Cardiovascular exam: Present: RRR, +S1, +S2. Absent: diastolic murmur, gallop, rubs, systolic murmur - GI/Abdominal GI/Abdominal exam: Present: normal bowel sounds, soft, no peritoneal signs. Absent: distended, tenderness - Extremities Exam Extremities exam: Present: warm, radial pulses palpable and symmetrical. Absent : calf tenderness, cyanotic, pedal edema - Neurological Exam Neurological exam: Present: alert, CN II-XII intact, oriented X3, no focal deficits. Absent: pronater drift, facial droop, speech deficit - Skin Skin exam: Present: dry, intact Internal Medicine: Result - Labs CBC & Chem 7: 09/15/17 02:48 09/15/17 02:48 Consult Discharge Plan - Plan Referrals: Freddy Swann Jr, MD [Primary Care Provider] -
[2017-09-15] MEDS: predniSONE 20 MG TABLET PO SCH (13:20)
[2017-09-15] MEDS: *HR* Heparin 5,000 UNIT/ML VIAL SQ SCH (17:59)
[2017-09-16] MEDS: Budesonide/Formoterol 160/4.5 MDI IH SCH ×2 (01:01→11:12)
[2017-09-16] MEDS: Ipratropium/Albuterol Neb 3 ML IH SCH ×3 (01:01→11:13)
[2017-09-16] MEDS: *HR* Heparin 5,000 UNIT/ML VIAL SQ SCH (04:53)
[2017-09-16 08:00] LABS: Basophils % 0.1 %; Eosinophils % 0.2 %; Hematocrit 43.3 % (35.3-44.9); Hemoglobin 14.7 g/dL (11.5-15.4); Immature Granulocytes % 0.7 % (0-4); Lymphocytes # 1.1 K/mcL (0.6-4.6); Lymphocytes % 13.1 %; Mean Corpuscular HGB Conc 33.9 g/dL (31.6-35.5); Mean Corpuscular Hemoglobin 33.3 pg (28.0-33.3); Mean Corpuscular Volume 98.2 fL (83.0-100.0); Mean Platelet Volume 9.6 fL (9.4-12.4); Monocytes # 0.8 K/mcL (0.0-1.3); Neutrophils # 6.5 K/mcL (1.6-8.9); Platelet Count 244 K/mcL (140-400); Red Blood Count 4.41 M/mcL (3.82-4.97); Red Cell Distribution Width 12.5 % (11.5-14.5); Segmented Neutrophils % 76.9 %
[2017-09-16 08:07] LABS: BUN/Creatinine Ratio 22 (6-26); Blood Urea Nitrogen 17 mg/dL (8-23); Calcium 9.5 mg/dL (8.6-10.3); Carbon Dioxide 29 mEq/L (23-29); Chloride 104 mEq/L (98-107); Glucose 95 mg/dL (70-105); Osmolality,Calculated 289 (280-300); Potassium 3.4 mEq/L (3.5-5.1); Sodium 139 mEq/L (136-145); eGFR For African Americans > 60 (> 60); eGFR For Non-African Americans > 60 (> 60)
[2017-09-16] MEDS ORDERED: levoFLOXacin 500 MG TABLET PO SCH (09:00)
[2017-09-16] MEDS: predniSONE 20 MG TABLET PO SCH (09:33)
[2017-09-16] MEDS: Multivit/Ca/Min/Fe/FA 1 TAB TABLET PO SCH (09:33)
[2017-09-16] MEDS: BIOTIN PO SCH (09:34)
[2017-09-16] MEDS: POTASSIUM 595 MG PO SCH (09:43)
[2017-09-16] MEDS: Fluticasone Propionate Nasal 50 MCG/SPRAY BOTTLE NS SCH (09:44)
[2017-09-16] MEDS: LOTEPREDNOL ETABONATE OP SCH (09:45)
[2017-09-16] MEDS: (Roflumilast [Daliresp] 500 MCG) PO SCH (09:45)
--- NOTE | 2017-09-16 11:26 | Discharge Summary ---
Date of Encounter: 09/16/17 Time of Encounter: 11:26 - Discharge Diagnosis (1) Acute and chronic respiratory failure with hypoxia Priority: Primary Status: Resolved (2) COPD with exacerbation Priority: Primary Status: Acute (3) Tachycardia Priority: Primary Status: Resolved (4) Community acquired pneumonia Priority: Primary Status: Acute Qualifiers: Laterality: unspecified laterality Qualified Code(s): J18.9 - Pneumonia, unspecified organism (5) DVT prophylaxis Priority: Primary Status: Acute (6) Hypokalemia Priority: Primary Status: Acute - Discharge Medications Prescriptions: levoFLOXacin [Levaquin] 500 mg PO DAILY #8 tablet predniSONE [PredniSONE] See Taper PO DAILY #20 tablet Home Medications: Albuterol Sulfate [Albuterol Inhaler] 2 puff IH Q4HR PRN 07/08/15 [History] Budesonide/Formoterol 160/4.5 [Symbicort 160/4.5] 2 puff IH BIDR 07/08/15 [ History] Calcium Carbonate 1,200 mg PO BID 07/08/15 [History] Ipratropium/Albuterol Neb [Duoneb] 3 ml IH Q6HR PRN 07/08/15 [History] Multivitamin [Flintstones] 1 each PO DAILY 07/08/15 [History] Biotin 1 tab PO DAILY 08/28/16 [History] Fluticasone Propionate Nasal [Flonase] 1 spray NS BID 08/28/16 [History] Potassium 595 mg PO DAILY 08/28/16 [History] Triamterene/Hydrochlorothiazid [Triamterene-Hctz 37.5-25 mg Cp] 1 tab PO DAILY 08/28/16 [History] Umeclidinium [place] [Incruse Ellipta] 1 puff IH DAILY 08/28/16 [History] Loteprednol Etabonate [Alrex] 1 drop BOTH EYES BID 09/14/17 [History] Roflumilast [Daliresp] 500 mcg PO DAILY 09/14/17 [History] predniSONE [PredniSONE] See Taper PO DAILY 09/14/17 [History] levoFLOXacin [Levaquin] 500 mg PO DAILY #8 tablet 09/16/17 [Rx] predniSONE [PredniSONE] See Taper PO DAILY #20 tablet 09/16/17 [Rx] Allergies/Adverse Reactions: 3 Allergy/AdvReac Type Severity Reaction Status Date / Time octinoxate Allergy Mild Rash Verified 08/28/16 08:26 sodium bicarbonate Allergy Unknown Gastrointestinal Verified 08/28/16 08:26 [From [facility]] Upset aspirin [From [facility]] AdvReac Mild Nausea Verified 08/28/16 08:26 citric acid AdvReac Mild Nausea Verified 08/28/16 08:26 [From [facility]] Date of admission: 09/15/17 08:37 Primary care physician: Freddy Swann Jr, MD Discharging clinician: Nav Macias Anticipated date of discharge: 09/16/17 - Patient Status Disposition: Home, Self-Care Condition: Good Functional capacity at discharge: independent ambulation Overall status at discharge: patient is progressing back to baseline - Discharge Instructions Follow Up With: Freddy Swann Jr, MD [Primary Care Provider] - - Diet and Activity Activity: resume usual activities as tolerated, wear oxygen at night Diet: low salt diet Interval History: See below Hospital course: Ms. Mobley is a 66 year old female with COPD and chronc resp failure on 2L home O2 at night, HTN She was admitted and managed for acute on chronic hypoxic respiratory failure secondary to COPDE and Community acquired pneumonia She was managed with steroids , antibiotics IV and duonebs She also had tachycardia on arrival which has since resolved She was well known to pulmonary team and they were consulted and co-managed this patient She is seen and evaluated at bedside, ambulatory, in no distress, feels better Medically stable to be discharged home on prednisone taper, and levquin to complete 10 days of therapy We did a 6 minutes walk test and patient's O2 sat remained at least 90 Safe to be discharged home to follow up with pulmonology and PCP Plan of care discussed, verbalized understanding - Time Spent with Patient Total time spent providing and/or coordinating discharge services: Greater than 30 minutes - Constitutional Vitals: Temp Pulse Resp BP Pulse Ox 97.8 F 85 17 110/62 94 09/16/17 06:52 09/16/17 06:52 09/16/17 11:15 09/16/17 06:52 09/16/17 11:15 General appearance: Present: A&O X 3, pleasant, no acute distress - Head Head exam: Present: atraumatic, normocephalic - Eye Eye exam: Present: PERRL, conjuntiva pink, sclera anicteric Pupils: Present: PERRL - Neck Neck exam general surgery: Present: supple, trachea midline. Absent: lymphadenopathy - Respiratory Respiratory exam: Present: CTAB. Absent: accessory muscle use, rales, rhonchi, wheezes - Cardiovascular Cardiovascular exam: Present: RRR, +S1, +S2. Absent: diastolic murmur, gallop, rubs, systolic murmur - GI/Abdominal GI/Abdominal exam: Present: normal bowel sounds, soft, no peritoneal signs. Absent: distended, tenderness - Extremities Exam Extremities exam: Present: warm, radial pulses palpable and symmetrical. Absent : calf tenderness, cyanotic, pedal edema - Neurological Exam Neurological exam: Present: alert, CN II-XII intact, oriented X3, no focal deficits. Absent: pronater drift, facial droop, speech deficit - Skin Skin exam: Present: dry, intact
[2017-09-16] MEDS: (Umeclidinium Bromide [Incruse Ellipta] 1 PUFF) IH SCH (11:29)
--- NOTE | 2017-09-16 11:48 | Event Note ---
Date of Encounter: 09/16/17 Time of Encounter: 11:46 Stable symptoms and her baseline oxygen requirements agree with walking pulse oximetry prior to discharge if does not desaturate can go to home use of oxygen 2 L at night otherwise discuss with social insurance administrator about getting oxygen arrangements made for home going. Complete 7 days of Levaquin with prescription to cover 10 days if needed continue prednisone 40 mg continue all other outpatient medications were COPD needs pulmonary follow-up within one week at the time of discharge Pulmonary will sign off
[2017-09-16 12:34] VITALS: BP 126/61
== END 2017-09-16 14:41 | disposition home or self-care (01) | DRG 190 ==
LOC: EMEROO 11:52 → 2ANU 11:52
PROVIDERS: ADMIT Internal Medicine Nephrology; ATTEND Internal Medicine Nephrology

== ENCOUNTER 2017-09-24 12:54 | Inpatient (IN) ==
[2017-09-24] MEDS ORDERED: Ipratropium/Albuterol Neb 3 ML IH ONE (13:20)
[2017-09-24] MEDS ORDERED: Vancomycin 1,000 MG in D5% in Water 250 ML IVPB ONE (13:27)
[2017-09-24] MEDS ORDERED: Piperacillin/Tazobactam 4.5 GM in D5% in Water (Mini-Bag+) 100 ML IVPB ONE (13:27)
--- NOTE | 2017-09-24 13:28 | Emergency Department Note ---
Disposition Clinical Impression: Acute exacerbation of chronic obstructive airways disease, Influenza, SIRS ( systemic inflammatory response syndrome) Disposition: Admitted As Inpatient Condition: Fair Referrals: Freddy Swann Jr, MD [Primary Care Provider] - Forms: ED Satisfaction Letter Time of Disposition: 15:06 SOB HPI - General Chief Complaint: ED Shortness of Breath/Dyspnea Stated Complaint: LETICIA,fever Time Seen by Provider: 09/24/17 13:08 Source: patient Limitations: no limitations Nursing Notes Reviewed: Yes Vital Signs Reviewed: Yes - History of Present Illness Miss Lowe is a 66-year-old woman with a history of severe COPD on home O2 at night and presents to the ED with 2 day history of worsening shortness of breath, fever, tachycardia. She says that she was starting to have an exacerbation approximately 3 weeks ago, and then was admitted to the hospital for several days from September 13 to September 15 for pneumonia. She is discharged with by mouth Levaquin which she was taking until yesterday, and also by mouth prednisone with a maintenance dose of azithromycin. About 2 days ago she began to experience worsening shortness of breath, high fever, chills. She says that she has been having shortness of breath, cough with sputum production that is about the same as when this exacerbation began, and she has had hypoxia at home. While using a pulse oximetry at home she has noticed that her pulse ox has dropped to approximately 70, requiring her to use oxygen during the day which she generally does not. Even with minimal exertion, the patient has noticed that she has had drops in her O2. - Related Data Home Medications Medication Instructions Recorded Confirmed Albuterol Sulfate [Albuterol 2 puff IH Q4HR PRN 07/08/15 09/24/17 Inhaler] Budesonide/Formoterol 160/4.5 2 puff IH BIDR 07/08/15 09/24/17 [Symbicort 160/4.5] Calcium Carbonate 1,200 mg PO DAILY 07/08/15 09/24/17 Ipratropium/Albuterol Neb [Duoneb] 3 ml IH Q6HR PRN 07/08/15 09/24/17 Multivitamin [Flintstones] 1 each PO DAILY 07/08/15 09/24/17 Biotin 1 tab PO DAILY 08/28/16 09/24/17 Fluticasone Propionate Nasal 1 spray NS BID 08/28/16 09/24/17 [Flonase] Potassium 99 mg PO DAILY 08/28/16 09/24/17 Triamterene/Hydrochlorothiazid 1 tab PO DAILY 08/28/16 09/24/17 [Triamterene-Hctz 37.5-25 mg Cp] Umeclidinium [place] [Incruse 1 puff IH DAILY 08/28/16 09/24/17 Ellipta] Loteprednol Etabonate [Alrex] 1 drop BOTH EYES BID 09/14/17 09/24/17 Roflumilast [Daliresp] 500 mcg PO DAILY 09/14/17 09/24/17 Azithromycin [Azithromycin] 250 mg PO DAILY 09/24/17 09/24/17 Previous Rx's Medication Instructions Recorded levoFLOXacin [Levaquin] 500 mg PO DAILY #8 tablet 09/16/17 predniSONE [PredniSONE] See Taper PO DAILY #20 tablet 09/16/17 Allergies Allergy/AdvReac Type Severity Reaction Status Date / Time octinoxate Allergy Mild Rash Verified 09/24/17 14:40 aspirin [From [facility]] AdvReac Mild Nausea Verified 09/24/17 14:40 citric acid AdvReac Mild Nausea Verified 09/24/17 14:40 [From [facility]] sodium bicarbonate AdvReac Unknown Gastrointestinal Verified 09/24/17 14:40 [From [facility]] Upset Constitutional: Reports: fever, chills, weakness Eyes: Denies: vision change ENT ED: Reports: congestion. Denies: ear pain Cardiovascular: Reports: dyspnea on exertion, edema. Denies: chest pain, palpitations Respiratory: Reports: cough, dyspnea, wheezes, sputum production. Denies: hemoptysis Gastrointestinal: Reports: nausea. Denies: abdominal pain, vomiting Genitourinary: Denies: urgency, dysuria, frequency Musculoskeletal: Denies: back pain, arthralgia Integumentary: Denies: rash Neurological: Reports: headache. Denies: numbness, paresthesias, confusion Psychiatric: Denies: anxiety, depression Endocrine: Reports: fatigue Hematological/Lymphatic: Denies: easy bleeding Past Medical History - Past Medical History Medical history: Reports: arthritis, cancer, COPD, hypertension Surgical history: Reports: other Psychiatric history: Reports: no psych history - Social History Smoking Status: Former smoker Smokeless Tobacco Status: No Alcohol use: Reports: heavy Drug use: Reports: none Physical Exam Gen.: Vitals noted. Mildly dyspneic on exam. AAOx3 HEENT: oropharynx clear, Normocephalic, atraumatic Neck: Supple. No adenopathy. Cardiac: RRR but rapid, no murmur, +S1/S2 Pulmonary: Lung sounds generally tight throughout with significant wheezing in the left lower lobe Abdomen: soft, nontender, BS noted, no guarding MSK: ROM intact, no joint swelling noted Extremities: no BLE edema, nontender calf, no cyanosis or clubbing Neuro: A&Ox3, moves all extremities, no focal deficits Psych: Appropriate mood and behavior - General Limitations: no limitations General appearance: alert Course Vital Signs Temperature 101.5 F H 09/24/17 12:56 Pulse Rate 129 09/24/17 12:56 Respiratory Rate 24 09/24/17 12:56 Blood Pressure 136/84 09/24/17 12:56 O2 Sat by Pulse Oximetry 92 09/24/17 12:56 Temperature 101.5 F H 09/24/17 12:56 Pulse Rate 101 09/24/17 16:05 Respiratory Rate 18 09/24/17 16:05 Blood Pressure 120/64 09/24/17 16:05 O2 Sat by Pulse Oximetry 95 09/24/17 16:05 Oxygen Delivery Oxygen Delivery Nasal Cannula Shortness of Breath/Dyspnea - MDM Narrative Medical decision making narrative: I reviewed this patient's labs, imaging, medical records. The patient presented to the ED with acute dyspnea and hypoxia. She does have a long- standing history of severe COPD and has required increased oxygen recently at home. Her initial presentation is consistent with SIRS criteria by fever, tachycardia, tachypnea, and there was suspicion for a pulmonary infection due to recent history of pneumonia. The patient did also just finished her dose of oral Levaquin. Chest x-ray did not demonstrate any sort of infectious process, however there was still some concern for pulmonary embolus due to the fact that she has been ill and less mobile than generally speaking and she has been on prednisone for quite some time. I did order a CTA of the chest which is negative for pulmonary embolus labs did demonstrate that she had a white count of 14K which could partially be explained by history of oral prednisone, however lactic acid was also elevated at 2.9 from 2.6. I did start the patient on a 2 L bolus of fluids due to possibility of sepsis, and additionally started broad-spectrum antibiotics with vancomycin and Zosyn. Flu swab did come back positive, Tamiflu was initiated. I spoke with a earring maker, Dr. Tee, he requested the patient be started on 60 mg IV methylprednisolone and to get a respiratory panel. I spoke with the hospitalist who did accept this patient to telemetry. - Medical Records Medical records reviewed: Yes I reviewed the patient's medical records. - Lab Data Lab results reviewed: Yes I reviewed the patient's lab results. Result diagrams: 09/24/17 13:15 09/24/17 13:15 Lab Results 09/24/17 09/24/17 09/24/17 Range/Units 13:15 13:15 13:15 WBC 14.0 H (4.3-11.1) K/mcL RBC 4.85 (3.82-4.97) M/mcL Hgb 16.2 H (11.5-15.4) g/dL Hct 48.1 H (35.3-44.9) % MCV 99.2 (83.0-100.0) fL MCH 33.4 H (28.0-33.3) pg MCHC 33.7 (31.6-35.5) g/dL RDW 12.5 (11.5-14.5) % Plt Count 222 (140-400) K/mcL MPV 9.0 L (9.4-12.4) fL Immature Gran % 1.1 (0-4) % Seg Neutrophils % 88.0 % Lymphocytes % 4.2 % Monocytes % 6.3 % Eosinophils % 0.1 % Basophils % 0.3 % Neutrophils # 12.3 H (1.6-8.9) K/mcL Lymphocytes # 0.6 (0.6-4.6) K/mcL Monocytes # 0.9 (0.0-1.3) K/mcL Eosinophils # 0.0 (0.0-0.6) K/mcL Basophils # 0.0 (0.0-0.2) K/mcL D-Dimer (0-500) ng/mLFEU Sodium 136 (136-145) mEq/L Potassium 3.6 (3.5-5.1) mEq/L Chloride 95 L (98-107) mEq/L Carbon Dioxide 31 H (23-29) mEq/L BUN 15 (8-23) mg/dL Creatinine 0.92 (0.60-1.20) mg/dL Est GFR ( Amer) > 60 (> 60) Est GFR (Non-Af Amer) > 60 (> 60) BUN/Creatinine Ratio 16 (6-26) Glucose 119 H (70-105) mg/dL Calculated Osmolality 284 (280-300) Lactic Acid 2.6 H (0.5-2.2) mmol/L Calcium 9.9 (8.6-10.3) mg/dL Troponin I (< 0.04) ng/mL B-Natriuretic Peptide (Less than 100) pg/mL 09/24/17 09/24/17 09/24/17 Range/Units 13:15 13:15 15:00 WBC (4.3-11.1) K/mcL RBC (3.82-4.97) M/mcL Hgb (11.5-15.4) g/dL Hct (35.3-44.9) % MCV (83.0-100.0) fL MCH (28.0-33.3) pg MCHC (31.6-35.5) g/dL RDW (11.5-14.5) % Plt Count (140-400) K/mcL MPV (9.4-12.4) fL Immature Gran % (0-4) % Seg Neutrophils % % Lymphocytes % % Monocytes % % Eosinophils % % Basophils % % Neutrophils # (1.6-8.9) K/mcL Lymphocytes # (0.6-4.6) K/mcL Monocytes # (0.0-1.3) K/mcL Eosinophils # (0.0-0.6) K/mcL Basophils # (0.0-0.2) K/mcL D-Dimer (0-500) ng/mLFEU Sodium (136-145) mEq/L Potassium (3.5-5.1) mEq/L Chloride (98-107) mEq/L Carbon Dioxide (23-29) mEq/L BUN (8-23) mg/dL Creatinine (0.60-1.20) mg/dL Est GFR ( Amer) (> 60) Est GFR (Non-Af Amer) (> 60) BUN/Creatinine Ratio (6-26) Glucose (70-105) mg/dL Calculated Osmolality (280-300) Lactic Acid 2.9 H (0.5-2.2) mmol/L Calcium (8.6-10.3) mg/dL Troponin I < 0.03 (< 0.04) ng/mL B-Natriuretic Peptide 50 (Less than 100) pg/mL 09/24/17 Range/Units 16:02 WBC (4.3-11.1) K/mcL RBC (3.82-4.97) M/mcL Hgb (11.5-15.4) g/dL Hct (35.3-44.9) % MCV (83.0-100.0) fL MCH (28.0-33.3) pg MCHC (31.6-35.5) g/dL RDW (11.5-14.5) % Plt Count (140-400) K/mcL MPV (9.4-12.4) fL Immature Gran % (0-4) % Seg Neutrophils % % Lymphocytes % % Monocytes % % Eosinophils % % Basophils % % Neutrophils # (1.6-8.9) K/mcL Lymphocytes # (0.6-4.6) K/mcL Monocytes # (0.0-1.3) K/mcL Eosinophils # (0.0-0.6) K/mcL Basophils # (0.0-0.2) K/mcL D-Dimer 357 (0-500) ng/mLFEU Sodium (136-145) mEq/L Potassium (3.5-5.1) mEq/L Chloride (98-107) mEq/L Carbon Dioxide (23-29) mEq/L BUN (8-23) mg/dL Creatinine (0.60-1.20) mg/dL Est GFR ( Amer) (> 60) Est GFR (Non-Af Amer) (> 60) BUN/Creatinine Ratio (6-26) Glucose (70-105) mg/dL Calculated Osmolality (280-300) Lactic Acid (0.5-2.2) mmol/L Calcium (8.6-10.3) mg/dL Troponin I (< 0.04) ng/mL B-Natriuretic Peptide (Less than 100) pg/mL - Radiology Data Radiology results reviewed: Yes I reviewed the patient's radiology results. - EKG Data EKG attestation: Yes I reviewed and interpreted this EKG. EKG results narrative: EKG demonstrated sinus tachycardia with a ventricular rate of 123, MN interval 112, QRS duration 74, QTC 355 with no evidence of acute ischemia. Critical Care Time Critical Care Time: Yes Total Critical Care Time: 35 Attestation: Rectal care time 35 minutes managing patient's influenza and SIRS Attestation Statement - Attestation Attestation: Patient was seen with resident physician. I reviewed the history, physical, assessment and plan, and agree with the findings. I also personally evaluated this patient and had [id number] time with this patient. 66-year-old female presents to the emergency department with chief complaint of shortness of breath and hypoxia. Patient was admitted to the hospital at the end of July for pneumonia. She said she developed fevers up to 100 home and shortness of breath. She is a COPD patient is on home O2. However she said it has gotten to where she needs it during the day and usually eats only at night. She has been taking steroids for the last week, and she notes that she just stopped her Levaquin today as it was her last dose and she has been on chronic Zithromax. She denies other complaints no abdominal pain no diarrhea. No neck stiffness. On exam vital signs she is febrile tachycardic meet SIRS criteria. ENT is unremarkable. Heart tachycardic lungs diffuse wheezing especially in the left base with poor air exchange generally. Abdomen is soft and nontender. Extremities are unremarkable. Neurologically intact. ED course will do full septic workup on the patient will start on IV antibiotics and we will admit to the hospitalist service for further evaluation treatment. Chest x-ray did not show anything sweet opted to get a CT scan of the chest just to try and further determine the source, and rule out PE. X-ray did not show worsening pneumonia and ruled out PE. Influenza study was positiveness likely the cause of her symptoms at this time. Pulmonology was at bedside. Hospitalist service was notified. Critical care time 35 minutes. Also get a urinalysis as well. Agree with the resident physician assessment and plan.
[2017-09-24 13:30] LABS: Basophils % 0.3 %; Eosinophils % 0.1 %; Hematocrit 48.1 % (35.3-44.9); Hemoglobin 16.2 g/dL (11.5-15.4); Immature Granulocytes % 1.1 % (0-4); Lymphocytes # 0.6 K/mcL (0.6-4.6); Lymphocytes % 4.2 %; Mean Corpuscular HGB Conc 33.7 g/dL (31.6-35.5); Mean Corpuscular Hemoglobin 33.4 pg (28.0-33.3); Mean Corpuscular Volume 99.2 fL (83.0-100.0); Monocytes # 0.9 K/mcL (0.0-1.3); Monocytes % 6.3 %; Neutrophils # 12.3 K/mcL (1.6-8.9); Platelet Count 222 K/mcL (140-400); Red Blood Count 4.85 M/mcL (3.82-4.97); Red Cell Distribution Width 12.5 % (11.5-14.5)
[2017-09-24] MEDS: 0.9 % Sodium Chloride 1,000 ML IVC SCH ×3 (13:45→23:13)
[2017-09-24 13:53] LABS: BUN/Creatinine Ratio 16 (6-26); Blood Urea Nitrogen 15 mg/dL (8-23); Calcium 9.9 mg/dL (8.6-10.3); Carbon Dioxide 31 mEq/L (23-29); Chloride 95 mEq/L (98-107); Glucose 119 mg/dL (70-105); Osmolality,Calculated 284 (280-300); Potassium 3.6 mEq/L (3.5-5.1); Sodium 136 mEq/L (136-145); eGFR For African Americans > 60 (> 60); eGFR For Non-African Americans > 60 (> 60)
[2017-09-24] MEDS ORDERED: Piperacillin/Tazobactam 3.375 GM in Water for inj. (sterile) 20 ML 20 ML IVPB ONE (14:15)
[2017-09-24] MEDS ORDERED: MethylPREDNISolone 40 MG/ML VIAL IVP ONE (14:23)
--- NOTE | 2017-09-24 14:50 | Pulmonology Consult Note ---
Date of Encounter: 09/24/17 Time of Encounter: 15:00 Assessment and Plan (1) COPD with exacerbation Current Visit: No Status: Acute Patient presentation is consistent with viral exacerbation of COPD with influenza positive will treat with Tamiflu 75 mg PO BID , With bronchodilators and steroids. (2) Acute and chronic respiratory failure Current Visit: Yes Status: Acute Patient was recommended to be on oxygen on exertion usually she is on Oxygen at night , will continue O2 supplementation to Keep SPO2 above 88%. Qualifiers: Qualified Code(s): J96.21 - Acute and chronic respiratory failure with hypoxia (3) Influenza Current Visit: Yes Status: Acute To start on Tamiflu 75 mg PO BID . History of Present Illness Consult date: 09/24/17 Requesting physician: Tato Lagunas Reason for consult: dyspnea, cough, COPD Chief complaint: Shortness of breadth History of present illness: 66 year old female with past medical history significant for Severe COPD on chronic prednisone therapy , needs on and off Oxygen comes with worsening shortness of breadth , cough and some sputum production patient also complains of fever , chills for past few days also had some sick contacts , denies any chest pain or hemoptysis , denies any headache , denies any GI or Neuro symptoms initial work up showed Influenza positive , patient is getting admitted for Viral exacerbation of COPD. Past Med Surg Social Fam HX - Past Medical History Medical history: arthritis, cancer, COPD, hypertension Psychiatric history: no psych history - Past Surgical History Surgical History: other - Social History Smoking Status: Former smoker Smokeless Tobacco Status: No Alcohol use: heavy Drug use: none - Family History Son Adopted: No Family Member Ethnicity: Non- Living Status: Still Living Hx Family Cardiac Disorders: Yes Hx Family Respiratory Disorders: No Hx Family Cancer: No Hx Family GI Disorders: No Hx Family Endocrine Disorder: No Hx Family Neuromuscular Disorders: No Hx Family Neurologic Disorders: No Hx Family HEENT Disorders: No Hx Family Autoimmune Disorders: No Father Race: Family Member Ethnicity: Non- Living Status: Age at : 60 Cause of : Stroke Hx Family Cardiac Disorders: Yes (Stroke) Mother Race: Family Member Ethnicity: Non- Living Status: Age at : 88 Cause of : COPD Hx Family Respiratory Disorders: Yes (COPD) Hx Family Neurologic Disorders: Yes (Narcolepsy) Brother Race: Family Member Ethnicity: Non- Living Status: Still Living Hx Family Medical Disorders: No Sister Race: Family Member Ethnicity: Non- Living Status: Age at : 48 Cause of : Pneumonia Hx Family Respiratory Disorders: Yes (Pneumonia) Medications and Allergies Albuterol Sulfate [Albuterol Inhaler] 2 puff IH Q4HR PRN 07/08/15 [History] Budesonide/Formoterol 160/4.5 [Symbicort 160/4.5] 2 puff IH BIDR 07/08/15 [ History] Calcium Carbonate 1,200 mg PO DAILY 07/08/15 [History] Ipratropium/Albuterol Neb [Duoneb] 3 ml IH Q6HR PRN 07/08/15 [History] Multivitamin [Flintstones] 1 each PO DAILY 07/08/15 [History] Biotin 1 tab PO DAILY 08/28/16 [History] Fluticasone Propionate Nasal [Flonase] 1 spray NS BID 08/28/16 [History] Potassium 99 mg PO DAILY 08/28/16 [History] Triamterene/Hydrochlorothiazid [Triamterene-Hctz 37.5-25 mg Cp] 1 tab PO DAILY 08/28/16 [History] Umeclidinium [place] [Incruse Ellipta] 1 puff IH DAILY 08/28/16 [History] Loteprednol Etabonate [Alrex] 1 drop BOTH EYES BID 09/14/17 [History] Roflumilast [Daliresp] 500 mcg PO DAILY 09/14/17 [History] levoFLOXacin [Levaquin] 500 mg PO DAILY #8 tablet 09/16/17 [Rx] predniSONE [PredniSONE] See Taper PO DAILY #20 tablet 09/16/17 [Rx] Azithromycin [Azithromycin] 250 mg PO DAILY 09/24/17 [History] 3 Allergy/AdvReac Type Severity Reaction Status Date / Time octinoxate Allergy Mild Rash Verified 09/24/17 14:40 aspirin [From [facility]] AdvReac Mild Nausea Verified 09/24/17 14:40 citric acid AdvReac Mild Nausea Verified 09/24/17 14:40 [From [facility]] sodium bicarbonate AdvReac Unknown Gastrointestinal Verified 09/24/17 14:40 [From [facility]] Upset All Systems: A 10-system review of systems was performed and is negative for pertinent findings except as documented above in the HPI. Physical Examination Vital Signs: Vital Signs, Last 4 Hours Temp Pulse Resp BP Pulse Ox 09/24/17 13:37 22 96 09/24/17 13:16 94 09/24/17 12:56 101.5 F H 129 24 136/84 92 General appearance: other (Mild respiratory distress) Effort: mildly labored Auscultation: bilateral: wheezes Cardiovascular: other (sinus tachycarida) Results - Laboratory Findings CBC and BMP: 09/24/17 13:15 09/24/17 13:15 Abnormal lab findings: Abnormal lab results WBC 14.0 K/mcL (4.3-11.1) H 09/24/17 13:15 Hgb 16.2 g/dL (11.5-15.4) H 09/24/17 13:15 Hct 48.1 % (35.3-44.9) H 09/24/17 13:15 MCH 33.4 pg (28.0-33.3) H 09/24/17 13:15 MPV 9.0 fL (9.4-12.4) L 09/24/17 13:15 Neutrophils # 12.3 K/mcL (1.6-8.9) H 09/24/17 13:15 Chloride 95 mEq/L (98-107) L 09/24/17 13:15 Carbon Dioxide 31 mEq/L (23-29) H 09/24/17 13:15 Glucose 119 mg/dL (70-105) H 09/24/17 13:15 Lactic Acid 2.6 mmol/L (0.5-2.2) H 09/24/17 13:15 - Microbiology Findings Microbiology Findings: Microbiology, Last 48 Hours 09/24/17 13:54 Influenza Types A,B Antigen (ELDA) - Final Nasopharyngeal - Clinical Findings Intake & Output: Intake & Output 09/23/17 09/24/17 09/24/17 23:59 07:59 15:59 Weight 66.497 kg Consult Discharge Plan - Plan Referrals: Freddy Swann Jr, MD [Primary Care Provider] -
[2017-09-24] MEDS ORDERED: Ondansetron 4 MG/2 ML VIAL IVP PRN (15:34)
[2017-09-24] MEDS ORDERED: Acetaminophen 325 MG TABLET PO PRN (15:34)
[2017-09-24] MEDS ORDERED: Naloxone 0.4 MG/ML INJ IVP PRN (15:34)
[2017-09-24] MEDS ORDERED: *HR* HYDROcodone/Acet 5/325 mg TABLET PO PRN (15:34)
[2017-09-24] MEDS ORDERED: MethylPREDNISolone 40 MG/ML VIAL ONE (15:42)
[2017-09-24] MEDS ORDERED: 0.9 % Sodium Chloride 1,000 ML IVC ONE (15:50)
--- NOTE | 2017-09-24 15:50 | Event Note ---
Date of Encounter: 09/24/17 Time of Encounter: 15:47 Patient seen and examined with practitioner. Patient just discharged from the hospital a week ago presents with worsening shortness of breath cough fever and chills. Suspect pneumonia. Treat the patient for HCAP. Check sputum culture. She is also positive start Tamiflu. Continue steroids and nebulizer treatment. Lactic acid increased to 2.9 from 2.6. will give one more little bolus of normal saline. Repeat lactic acid. She is vitally stable. Not hypotensive. She is full code
--- NOTE | 2017-09-24 15:50 | Internal Med History&Physical ---
Date of Encounter: 09/24/17 Time of Encounter: 14:30 Assessment and Plan (1) Sepsis Current visit: Yes Status: Acute Pt. meets sepsis criteria d/t WBC of 14.0, HR of 129, RR of 24, and suspected HCAP d/t recent hospitalization. Pts. dx complicated by current HCAP, influenza A, and acute exacerbation of COPD. Initial lactic acid 2.6 with second 2.9. Pt. received 1L bolus of 0.9 NS in ED. F/u bolus ordered to be followed by 100 mL/ HR. Blood cultures x2. Sputum culture. Legionella and strep pneumoniae antigens ordered. IVPB vancomycin w/pharmacy dosing and Zosyn 3.375 gm Q8 for infection coverage. Continuous cardiac telemetry. Supplemental O2 w/titration and SpO2 monitoring. Pt. to be monitored for signs of increasing infection, cardiac, and/ or respiratory distress. Monitor f/u labs. Pt. discussed w/Dr. Esparza who is in agreement w/plan of care. Pt. is at high risk for further morbidity and decline d/t current HCAP, positive influenza A dx, acute exacerbation of COPD, and sepsis criteria. Inpatient. Qualifiers: Sepsis type: sepsis due to unspecified organism Qualified Code(s): A41.9 - Sepsis, unspecified organism (2) HCAP (healthcare-associated pneumonia) Current visit: Yes Status: Acute Acute HCAP complicated by current influenza dx and acute exacerbation of COPD. Pt. reports she was admitted to [facility] September 13 for pneumonia and discharged on PO levaquin. Pt. takes maintenance azithromycin for COPD. 1-View CXR today shows normal cardiomediastinal silhouette. The lungs are clear without focal consolidation or pleural effusion. No suspicious pulmonary nodules. No pulmonary edema. No pneumothorax. Will treat for HCAP d/t pts. recent hospitalization. IVPB Zosyn 3.375 gm Q8 and vancomycin w/pharmacy dosing. Blood cultures 2. Sputum culture. Legionella and strep pneumoniae antigens ordered. Supplemental O2 with titration and SPO2 monitoring. DuoNeb every 4 scheduled. Monitor pt. and f/u labs. (3) Acute exacerbation of chronic obstructive airways disease Current visit: Yes Status: Acute Acute exacerbation of COPD. Pt. reports increasing SOB/dyspnea over the past two days. Pt. states she takes 40 mg prednisone PO daily. Hold PO and administer 60 mg Solu-Medrol every 6. DuoNebs Q4 scheduled. Tessalon 100 mg TID for cough. Supplemental O2 w/titration and SpO2 monitoring. Will order ABG if pt. becomes hypoxic. (4) Influenza Current visit: Yes Status: Acute Acute influenza A infection dx today. Will begin Tamiflu tx 75 mg BID for 5 days. Patient isolation. Supportive care. (5) HTN (hypertension) Current visit: Yes Status: Chronic Hx of chronic HTN. Monitor pt. and VS. Continue pts. Triamterene HCTZ. Qualifiers: Hypertension type: essential hypertension Qualified Code(s): I10 - Essential (primary) hypertension (6) DVT prophylaxis Current visit: Yes Status: Acute Heparin 5,000 units SQ Q8 for DVT prophylaxis. Monitor pt. for signs of bleeding. Internal Medicine - H&P: HPI Chief complaint: SOB/Dyspnea Admitted From: Emergency Dept Plans for Post Hospital Care: Home History of present illness: Ms. Mobley is a 66 year old female with medical history of arthritis, basal cell skin carcinoma of the neck which is resolved, COPD, and hypertension presents from the ED with chief complaint of shortness of breath and dyspnea for the past 2 days which became worse yesterday. Patient reports she was admitted to [facility] September 08 for pneumonia and discharged on by mouth Levaquin and is on maintenance 40 mg PO prednisone daily and azithromycin for COPD. Also reports fever, chills, and cough. Pt. reports 2L O2 @night. Pt. reports she feels well then becomes sick as a cycle since August. Pt. reports SOB, dyspnea, fever, chills, cough w/sputum production, and weakness but denies nausea, vomiting, headache, changes in vision, chest pain, palpitations, numbness, tingling, abdominal pain, diarrhea, constipation, dizziness, lightheadedness, pre-syncope, or syncope. Past Med Surg Social Fam HX - Past Medical History Source: patient, old records reviewed, obtained from family Medical history: arthritis, cancer (Basal cell carcinoma of the neck that pt. reports as resolved), COPD, hypertension Psychiatric history: no psych history - Past Surgical History Surgical History: other - Social History Smoking Status: Former smoker Packs per day: 2 PPD - Reports quitting in 2014 Smokeless Tobacco Status: No Alcohol use: heavy Drug use: none Current living situation: Home Activity Level: Independent ambulation Recent Out of Country Travel Within the Last 8 Weeks: No Exposure or Possible Exposure to Illness During Travel: No - Family History Son Adopted: No Race: Family Member Ethnicity: Non- Living Status: Still Living Hx Family Cardiac Disorders: Yes Hx Family Medical Disorders: No Father Race: Family Member Ethnicity: Non- Living Status: Age at : 60 Cause of : Stroke Hx Family Cardiac Disorders: Yes (Stroke) Mother Race: Family Member Ethnicity: Non- Living Status: Age at : 88 Cause of : COPD Hx Family Respiratory Disorders: Yes (COPD) Hx Family Neurologic Disorders: Yes (Narcolepsy) Brother Race: Family Member Ethnicity: Non- Living Status: Still Living Hx Family Medical Disorders: No Sister Race: Family Member Ethnicity: Non- Living Status: Age at : 48 Cause of : Pneumonia Hx Family Respiratory Disorders: Yes (Pneumonia) Internal Medicine - H&P: Meds Albuterol Sulfate [Albuterol Inhaler] 2 puff IH Q4HR PRN 07/08/15 [History] Budesonide/Formoterol 160/4.5 [Symbicort 160/4.5] 2 puff IH BIDR 07/08/15 [ History] Calcium Carbonate 1,200 mg PO DAILY 07/08/15 [History] Ipratropium/Albuterol Neb [Duoneb] 3 ml IH Q6HR PRN 07/08/15 [History] Multivitamin [Flintstones] 1 each PO DAILY 07/08/15 [History] Biotin 1 tab PO DAILY 08/28/16 [History] Fluticasone Propionate Nasal [Flonase] 1 spray NS BID 08/28/16 [History] Potassium 99 mg PO DAILY 08/28/16 [History] Triamterene/Hydrochlorothiazid [Triamterene-Hctz 37.5-25 mg Cp] 1 tab PO DAILY 08/28/16 [History] Umeclidinium [place] [Incruse Ellipta] 1 puff IH DAILY 08/28/16 [History] Loteprednol Etabonate [Alrex] 1 drop BOTH EYES BID 09/14/17 [History] Roflumilast [Daliresp] 500 mcg PO DAILY 09/14/17 [History] levoFLOXacin [Levaquin] 500 mg PO DAILY #8 tablet 09/16/17 [Rx] predniSONE [PredniSONE] See Taper PO DAILY #20 tablet 09/16/17 [Rx] Azithromycin [Azithromycin] 250 mg PO DAILY 09/24/17 [History] 3 Allergy/AdvReac Type Severity Reaction Status Date / Time octinoxate Allergy Mild Rash Verified 09/24/17 14:40 aspirin [From [facility]] AdvReac Mild Nausea Verified 09/24/17 14:40 citric acid AdvReac Mild Nausea Verified 09/24/17 14:40 [From [facility]] sodium bicarbonate AdvReac Unknown Gastrointestinal Verified 09/24/17 14:40 [facility] Upset All Systems PM: A 10-system review of systems was performed and is negative for pertinent findings except as documented above in the HPI. - Constitutional Constitutional: as per HPI, chills, fever(s), weakness, no night sweats - EENT Eyes: no change in vision, no discharge, no pain, no photophobia Ears: no ear discharge, no ear pain, no tinnitus Nose, mouth and throat: no dysphagia, no nasal discharge, no neck pain, no sore throat - Breasts Breasts: as per HPI - Cardiovascular Cardiovascular ROS IM: as per HPI, dyspnea, dyspnea on exertion, no chest pain, no diaphoresis, no lightheadedness, no palpitations, no syncope - Respiratory Respiratory: as per HPI, cough, dyspnea, dyspnea on exertion, wheezing, change in phlegm color, no excessive phlegm production - Gastrointestinal Gastrointestinal: no abdominal pain, no diarrhea, no hematemesis, no hematochezia, no melena, no nausea, no vomiting - Genitourinary Genitourinary: no change in urinary stream, no dysuria, no flank pain, no hematuria Menstruation: as per HPI - Musculoskeletal Musculoskeletal ROS IM: no numbness, no tingling - Integumentary Integumentary IM: no rash, no unusual bruising - Neurological Neurological ROS: no confusion, no convulsions, no focal weakness, no numbness, no tingling, no tremor(s) - Psychiatric Psychiatric: as per HPI - Endocrine Endocrine IM: as per HPI - Hematologic/Lymphatic Hematologic/Lymphatic: no easy bruising - Allergic/Immunologic Allergic/Immunologic: as per HPI - Constitutional Vitals: Temp Pulse Resp BP Pulse Ox 101.5 F H 129 22 136/84 96 09/24/17 12:56 09/24/17 12:56 09/24/17 13:37 09/24/17 12:56 09/24/17 13:37 General appearance: Present: cooperative, mild distress (Respiratory), A&O X 3, pleasant, obese, answers questions appropriately - Head Head exam: Present: atraumatic, normocephalic - Eye Eye exam: Present: PERRL, conjuntiva pink, sclera anicteric Pupils: Present: PERRL - ENT ENT exam: Present: normal exam - Neck Neck exam general surgery: Present: normal inspection, supple, trachea midline. Absent: lymphadenopathy - Respiratory Respiratory exam: Present: accessory muscle use, respiratory distress, wheezes. Absent: rales, rhonchi - Cardiovascular Cardiovascular exam: Present: +S1, +S2, tachycardia - GI/Abdominal GI/Abdominal exam: Present: normal bowel sounds, soft, no peritoneal signs. Absent: distended, tenderness - Rectal Rectal exam: Present: deferred - Additional comments: exam deferred. - Extremities Exam Extremities exam: Present: warm, radial pulses palpable and symmetrical. Absent : calf tenderness, cyanotic, pedal edema - Back Exam Back exam: Present: normal inspection - Neurological Exam Neurological exam: Present: CN II-XII intact, oriented X3, no focal deficits. Absent: pronater drift, facial droop, speech deficit - Psychiatric Psychiatric exam: Present: normal affect, normal mood - Skin Skin exam: Present: dry, intact Internal Med - H&P Results - Labs CBC & Chem 7: 09/24/17 13:15 09/24/17 13:15 Labs: Short CBC 09/24/17 Range/Units 13:15 WBC 14.0 H (4.3-11.1) K/mcL Hgb 16.2 H (11.5-15.4) g/dL Hct 48.1 H (35.3-44.9) % Plt Count 222 (140-400) K/mcL Neutrophils # 12.3 H (1.6-8.9) K/mcL BMP 09/24/17 13:15 Sodium 136 Potassium 3.6 Chloride 95 L Carbon Dioxide 31 H BUN 15 Creatinine 0.92 Glucose 119 H Calcium 9.9 Cardiac Enzymes 09/24/17 Range/Units 13:15 Troponin I < 0.03 (< 0.04) ng/mL - EKG Data EKG shows normal: sinus rhythm Rate: tachycardia - EKG Data Prior EKG available for review: yes EKG comments: 09/24/17 16:02 EKG dated 09/14/17 shows sinus tachycardia and abnormal rhythm ECG. EKG dated 09/24/17 shows sinus tachycardia with short UT interval and abnormal rhythm ECG. - Impressions ITS Impressions Chest X-Ray 09/24/17 13:20 IMPRESSION: No acute cardiopulmonary disease. D/ / Arpita Thorne MD / Arpita Thorne MD Interpreting Provider: Arpita Thorne MD - Diagnostic Studies Chest x-ray Additional comments: Impressions Chest X-Ray 09/24/17 13:20 IMPRESSION: No acute cardiopulmonary disease. D/ / Arpita Thorne MD / Arpita Thorne MD Interpreting Provider: Arpita Thorne MD Other Images Additional comments: Impressions Chest CTA 09/24/17 14:11 IMPRESSION: Decreasing bibasilar airspace disease as compared to prior examination dated 09/14/2017, compatible with improving atelectasis or pneumonia. Emphysema. Punctate 3 mm superior segment left lower lobe nodule is not significantly changed. Continued clinical follow-up is suggested. No gross findings of pulmonary embolism. Fleischner Society guidelines for follow-up and management of incidentally detected pulmonary nodules:Single Solid Nodule:Nodule size less than 6 mmIn a low-risk patient, no routine follow-up.In a high-risk patient, optional CT at 12 months. Nodule size equals 6-8 mmIn a low-risk patient, CT at 6-12 months, then consider CT at 18-24 months.In a high-risk patient, CT at 6-12 months, then CT at 18-24 months.Nodule size greater than 8 mmIn a low-risk patient, consider CT, PET/CT, or tissue sampling at 3 months.In a high-risk patient, consider CT, PET/CT, or tissue sampling at 3 months.Multiple Solid Nodules:Nodule size less than 6 mmIn a low-risk patient, no routine follow-up.In a high-risk patient, optional CT at 12 months. Nodule size equals 6-8 mmIn a low-risk patient, CT at 3-6 months, then consider CT at 18-24 months.In a high-risk patient, CT at 3-6 months, then CT at 18-24 months.Nodule size greater than 8 mmIn a low-risk patient, CT at 3-6 months, then consider CT at 18-24 months.In a high-risk patient, CT at 3-6 months, then CT at 18-24 months.- Low risk patients include individuals with minimal or absent history of smoking and other known risk factors.- High risk patients include individuals with a history or smoking or known risk factors.Radiology 2017 http://pubs.rsna.org/doi/full/10.1148/radiol.[email or web address] D/ / Lexa Bergeron MD / Lexa Bergeron MD Interpreting Provider: Lexa Bergeron MD
[2017-09-24] MEDS: Ipratropium/Albuterol Neb 3 ML IH SCH ×3 (18:07→22:03)
[2017-09-24 18:27] LABS: Adenovirus Not Detected (Not Detect); Bordetella Pertussis Not Detected (Not Detect); Chlamydophila pneumoniae Not Detected (Not Detect); Coronavirus 229E Not Detected (Not Detect); Coronavirus HKU1 Not Detected (Not Detect); Coronavirus NL63 Not Detected (Not Detect); Coronavirus OC43 Not Detected (Not Detect); Human Metapneumovirus Not Detected (Not Detect); Human Rhinovirus/Enterovirus Not Detected (Not Detect); Influenza A Subtype 2009 H1 Not Detected (Not Detect); Influenza A Untypeable Not Detected (Not Detect); Influenza B Not Detected (Not Detect); Mycoplasma pneumoniae Not Detected (Not Detect); Parainfluenza Virus 1 Not Detected (Not Detect); Parainfluenza Virus 2 Not Detected (Not Detect); Parainfluenza Virus 3 Not Detected (Not Detect); Parainfluenza Virus 4 Not Detected (Not Detect); Respiratory Syncytial Virus Not Detected (Not Detect)
[2017-09-24] MEDS ORDERED: Piperacillin/Tazobactam 3.375 GM/200 ML BAG IVPB SCH (20:00)
[2017-09-24] MEDS: Budesonide/Formoterol 160/4.5 MDI IH SCH (22:03)
[2017-09-24] MEDS: LOTEPREDNOL ETABONATE OP SCH (22:28)
[2017-09-24] MEDS: Oseltamivir Phosphate 30 MG CAPSULE PO SCH (22:28)
[2017-09-24] MEDS: Fluticasone Propionate Nasal 50 MCG/SPRAY BOTTLE NS SCH (22:28)
[2017-09-24] MEDS: methylPREDNISolone 125 MG/2 ML VIAL IVP SCH (23:14)
[2017-09-24] MEDS: *HR* Heparin 5,000 UNIT/ML VIAL SQ SCH (23:14)
[2017-09-24] MEDS: Piperacillin/Tazobactam 3.375 GM/200 ML BAG IVPB SCH (23:15)
[2017-09-25] MEDS: Ipratropium/Albuterol Neb 3 ML IH SCH ×5 (04:59→20:24)
[2017-09-25 05:26] LABS: Basophils % 0.2 %; Hematocrit 39.3 % (35.3-44.9); Immature Granulocytes % 1.2 % (0-4); Lymphocytes # 0.2 K/mcL (0.6-4.6); Lymphocytes % 4.5 %; Mean Corpuscular HGB Conc 33.3 g/dL (31.6-35.5); Mean Corpuscular Hemoglobin 32.4 pg (28.0-33.3); Mean Corpuscular Volume 97.3 fL (83.0-100.0); Mean Platelet Volume 9.1 fL (9.4-12.4); Monocytes # 0.1 K/mcL (0.0-1.3); Monocytes % 2.3 %; Neutrophils # 4.5 K/mcL (1.6-8.9); Platelet Count 198 K/mcL (140-400); Red Blood Count 4.04 M/mcL (3.82-4.97); Red Cell Distribution Width 12.5 % (11.5-14.5); Segmented Neutrophils % 91.8 %
[2017-09-25 05:27] LABS: Hemoglobin 13.1 g/dL (11.5-15.4)
[2017-09-25 05:45] LABS: Alanine Aminotransferase 19 Units/L (7-52); Albumin 3.3 g/dL (3.5-5.7); Albumin/Globulin Ratio 1.6 (1.1-2.2); Alkaline Phosphatase 48 Units/L (34-104); Aspartate Amino Transferase 18 Units/L (13-39); BUN/Creatinine Ratio 14 (6-26); Bilirubin,Total 0.4 mg/dL (0.3-1.0); Blood Urea Nitrogen 10 mg/dL (8-23); Calcium 8.6 mg/dL (8.6-10.3); Carbon Dioxide 26 mEq/L (23-29); Chloride 105 mEq/L (98-107); Chol/HDL Ratio 2.2 (0-4.9); Cholesterol 162 mg/dL (< 200); Globulin 2.1 g/dL (2.4-3.5); Glucose 154 mg/dL (70-105); HDL Cholesterol 75 mg/dL (40-59); LDL Cholesterol,Calculated 74 mg/dL (0-99); Magnesium 1.8 mg/dL (1.6-2.6); Osmolality,Calculated 290 (280-300); Potassium 3.2 mEq/L (3.5-5.1); Sodium 139 mEq/L (136-145); Total Protein 5.4 g/dL (6.4-8.9); Triglycerides 64 mg/dL (< 150); eGFR For African Americans > 60 (> 60); eGFR For Non-African Americans > 60 (> 60)
[2017-09-25] MEDS: Piperacillin/Tazobactam 3.375 GM/200 ML BAG IVPB SCH (06:35)
[2017-09-25] MEDS: Fluticasone Propionate Nasal 50 MCG/SPRAY BOTTLE NS SCH ×2 (08:26→21:34)
[2017-09-25] MEDS: Multivit/Ca/Min/Fe/FA 1 TAB TABLET PO SCH (08:28)
[2017-09-25] MEDS: Oseltamivir Phosphate 30 MG CAPSULE PO SCH ×2 (08:28→21:34)
[2017-09-25] MEDS: methylPREDNISolone 125 MG/2 ML VIAL IVP SCH (08:29)
[2017-09-25] MEDS: (Roflumilast [Daliresp] 500 MCG) PO SCH (08:37)
[2017-09-25] MEDS: LOTEPREDNOL ETABONATE OP SCH (08:39)
[2017-09-25] MEDS: Budesonide/Formoterol 160/4.5 MDI IH SCH ×2 (08:40→20:25)
[2017-09-25] MEDS: *HR* Heparin 5,000 UNIT/ML VIAL SQ SCH ×3 (08:40→17:02)
[2017-09-25] MEDS ORDERED: Aminoglycoside Consult 1 EACH MC ONE (08:45)
[2017-09-25] MEDS ORDERED: (Umeclidinium Bromide [Incruse Ellipta] 1 PUFF) IH SCH (09:00)
[2017-09-25] MEDS ORDERED: BIOTIN PO SCH (09:00)
[2017-09-25] MEDS ORDERED: (Potassium [Potassium] 99 MG) PO SCH (09:00)
[2017-09-25] MEDS: 0.9 % Sodium Chloride 1,000 ML IVC SCH (09:56)
[2017-09-25] MEDS: Roflumilast [Daliresp] 500 MCG PO SCH (10:01)
--- NOTE | 2017-09-25 12:36 | Pulmonology Progress Note ---
Date of Encounter: 09/25/17 Time of Encounter: 12:20 Assessment and Plan (1) COPD with exacerbation Current Visit: No Status: Acute Patient has viral exacerbation of COPD improving with tamiflu , bronchodilators and steroids . Will stop vancomycin , zosyn will change to Doxycycline to complete 5 day course on discharge , will need steroid taper 40 mg x 5 days , 30 mg x 5 days , 20 mg x 7 days then to her chronic dose of 10 mg . (2) Acute and chronic respiratory failure Current Visit: Yes Status: Acute On discharge to walk her and see how much O2 she needs , will needs O2 on exercise. Qualifiers: Qualified Code(s): J96.21 - Acute and chronic respiratory failure with hypoxia (3) Influenza Current Visit: Yes Status: Acute To complete total 5 day course of Tamiflu Subjective Principal diagnosis: COPD exacerbation Interval history: 66 year old female with severe COPD presented with Viral exacerbation of COPD , patient is lot doing better less shortness of breadth than yesterday , denies any chest pain , not much cough or sputum production yet to walk and see . Objective PUL Vital signs: Last Vital Signs Temp 97.5 F L 09/25/17 11:04 Pulse 86 09/25/17 11:04 Resp 17 09/25/17 11:49 BP 122/71 09/25/17 11:04 Pulse Ox 94 09/25/17 11:49 Auscultation: bilateral: clear Results - Laboratory Findings CBC and BMP: 09/25/17 04:50 09/25/17 04:50 PT/INR, D-dimer D-Dimer 357 ng/mLFEU (0-500) 09/24/17 16:02 Abnormal lab findings: Abnormal lab results MPV 9.1 fL (9.4-12.4) L 09/25/17 04:50 Lymphocytes # 0.2 K/mcL (0.6-4.6) L 09/25/17 04:50 Potassium 3.2 mEq/L (3.5-5.1) L 09/25/17 04:50 Glucose 154 mg/dL (70-105) H 09/25/17 04:50 Lactic Acid 3.2 mmol/L (0.5-2.2) H 09/24/17 16:41 Serum Total Protein 5.4 g/dL (6.4-8.9) L 09/25/17 04:50 Albumin 3.3 g/dL (3.5-5.7) L 09/25/17 04:50 Globulin 2.1 g/dL (2.4-3.5) L 09/25/17 04:50 HDL Cholesterol 75 mg/dL (40-59) H 09/25/17 04:50 Influenza A (H3) PCR DETECTED (Not Detect) A 09/24/17 13:54 - Clinical Findings Intake & Output: Intake & Output 09/24/17 09/25/17 09/25/17 23:59 07:59 15:59 Intake Total 0 / 0 200 / 200 1240 / 1240 Balance 0 / 0 200 / 200 1240 / 1240 Weight 66.678 kg Consult Discharge Plan - Plan Referrals: Freddy Swann Jr, MD [Primary Care Provider] -
[2017-09-25] MEDS: Doxycycline 100 MG in 0.9 % Sodium Chloride Mini Bag 100 ML IVPB SCH (13:18)
[2017-09-25] MEDS ORDERED: Vancomycin 1,000 MG in D5% in Water 250 ML IVPB SCH (14:00)
[2017-09-25] MEDS: predniSONE 20 MG TABLET PO SCH (17:00)
--- NOTE | 2017-09-25 20:15 | Electrocardiograph Report ---
[address] [place], [place] [address] Test Date: 2017-09-24 Pat Name: [facility] Department: 102 Room: 2A Gender: F [employer]mal [employer] Analyst: : [id number] Requested By: Tato Lagunas Order Number: [id number] Reading MD: Awilda Horton Measurements Intervals [place] Rate: 123 P: 80 NE: 112 QRS: 63 QRSD: 74 T: 65 QT: 282 QTc: 355 Interpretive Statements SINUS TACHYCARDIA ABNORMAL RHYTHM ECG Electronically Signed On 09-25-2017 20:14:34 EST by Awilda Horton
[2017-09-25] MEDS: LOTEPREDNOL 0.2% OP SCH (21:34)
[2017-09-26] MEDS: Ipratropium/Albuterol Neb 3 ML IH SCH ×7 (00:05→23:41)
[2017-09-26] MEDS: *HR* Heparin 5,000 UNIT/ML VIAL SQ SCH ×3 (00:18→17:04)
[2017-09-26] MEDS: Doxycycline 100 MG in 0.9 % Sodium Chloride Mini Bag 100 ML IVPB SCH ×2 (01:27→14:31)
[2017-09-26 06:53] LABS: Alanine Aminotransferase 21 Units/L (7-52); Albumin 3.1 g/dL (3.5-5.7); Albumin/Globulin Ratio 1.3 (1.1-2.2); Alkaline Phosphatase 42 Units/L (34-104); Aspartate Amino Transferase 21 Units/L (13-39); BUN/Creatinine Ratio 17 (6-26); Bilirubin,Total 0.3 mg/dL (0.3-1.0); Blood Urea Nitrogen 11 mg/dL (8-23); Calcium 8.9 mg/dL (8.6-10.3); Carbon Dioxide 26 mEq/L (23-29); Chloride 108 mEq/L (98-107); Globulin 2.3 g/dL (2.4-3.5); Glucose 98 mg/dL (70-105); Magnesium 1.8 mg/dL (1.6-2.6); Osmolality,Calculated 289 (280-300); Potassium 3.5 mEq/L (3.5-5.1); Sodium 140 mEq/L (136-145); Total Protein 5.4 g/dL (6.4-8.9); eGFR For African Americans > 60 (> 60); eGFR For Non-African Americans > 60 (> 60)
[2017-09-26 07:21] LABS: Basophils % 0.1 %; Hematocrit 39.9 % (35.3-44.9); Hemoglobin 13.4 g/dL (11.5-15.4); Immature Granulocytes % 0.9 % (0-4); Lymphocytes # 0.6 K/mcL (0.6-4.6); Mean Corpuscular HGB Conc 33.6 g/dL (31.6-35.5); Mean Corpuscular Hemoglobin 33.1 pg (28.0-33.3); Mean Corpuscular Volume 98.5 fL (83.0-100.0); Mean Platelet Volume 9.3 fL (9.4-12.4); Monocytes # 0.7 K/mcL (0.0-1.3); Monocytes % 7.1 %; Neutrophils # 8.3 K/mcL (1.6-8.9); Platelet Count 200 K/mcL (140-400); Red Blood Count 4.05 M/mcL (3.82-4.97); Red Cell Distribution Width 12.6 % (11.5-14.5); Segmented Neutrophils % 85.9 %
[2017-09-26] MEDS: Budesonide/Formoterol 160/4.5 MDI IH SCH ×2 (08:03→19:50)
[2017-09-26] MEDS: Benzonatate 100 MG CAPSULE PO PRN ×2 (08:24→20:58)
[2017-09-26] MEDS: Multivit/Ca/Min/Fe/FA 1 TAB TABLET PO SCH (08:24)
[2017-09-26] MEDS: predniSONE 20 MG TABLET PO SCH (08:24)
[2017-09-26] MEDS: Oseltamivir Phosphate 30 MG CAPSULE PO SCH ×2 (08:24→21:00)
[2017-09-26] MEDS: LOTEPREDNOL 0.2% OP SCH ×2 (08:25→20:56)
[2017-09-26] MEDS: (Roflumilast [Daliresp] 500 MCG) PO SCH (08:26)
[2017-09-26] MEDS: Fluticasone Propionate Nasal 50 MCG/SPRAY BOTTLE NS SCH ×2 (08:26→20:56)
[2017-09-26] MEDS: Roflumilast [Daliresp] 500 MCG PO SCH (08:43)
--- NOTE | 2017-09-26 09:44 | Pulmonology Progress Note ---
Date of Encounter: 09/26/17 Time of Encounter: 09:00 Assessment and Plan (1) COPD with exacerbation Current Visit: No Status: Acute Patient has viral exacerbation of COPD improving with tamiflu , bronchodilators and steroids . To continue Doxycycline to complete 5 day course on discharge , will need steroid taper 40 mg x 5 days , 30 mg x 5 days , 20 mg x 7 days then to her chronic dose of 10 mg on discharge . But continue the bronchodilators and steroids . (2) Acute and chronic respiratory failure Current Visit: Yes Status: Acute On discharge to walk her and see how much O2 she needs , will needs O2 on exercise. Qualifiers: Respiratory failure complication: hypoxia Qualified Code(s): J96.21 - Acute and chronic respiratory failure with hypoxia (3) Influenza Current Visit: Yes Status: Acute To complete total 5 day course of Tamiflu Subjective Principal diagnosis: COPD exacerbation Interval history: 66 year old female with severe COPD presented with Viral exacerbation of COPD , patient is not feeling well today didnt sleep well last night , coughing little bit more sore in her back of chest due to coughing not much sputum production Objective PUL Vital signs: Last Vital Signs Temp 98.0 F 09/26/17 07:47 Pulse 79 09/26/17 07:47 Resp 17 09/26/17 08:05 BP 128/72 09/26/17 07:47 Pulse Ox 94 09/26/17 08:50 Effort: mildly labored Auscultation: bilateral: clear Results - Laboratory Findings CBC and BMP: 09/26/17 05:43 09/26/17 05:43 PT/INR, D-dimer D-Dimer 357 ng/mLFEU (0-500) 09/24/17 16:02 Abnormal lab findings: Abnormal lab results MPV 9.3 fL (9.4-12.4) L 09/26/17 05:43 Chloride 108 mEq/L (98-107) H 09/26/17 05:43 Lactic Acid 3.2 mmol/L (0.5-2.2) H 09/24/17 16:41 Serum Total Protein 5.4 g/dL (6.4-8.9) L 09/26/17 05:43 Albumin 3.1 g/dL (3.5-5.7) L 09/26/17 05:43 Globulin 2.3 g/dL (2.4-3.5) L 09/26/17 05:43 HDL Cholesterol 75 mg/dL (40-59) H 09/25/17 04:50 Influenza A (H3) PCR DETECTED (Not Detect) A 09/24/17 13:54 - Clinical Findings Intake & Output: Intake & Output 09/25/17 09/26/17 09/26/17 23:59 07:59 15:59 Intake Total 0 / 0 Output Total 600 / 600 900 / 900 Balance -600 / -600 -900 / -900 Weight 66.706 kg Consult Discharge Plan - Plan Referrals: Freddy Swann Jr, MD [Primary Care Provider] - 10/04/17 10:00 am (Please follow up as schedule.. )
--- NOTE | 2017-09-26 13:14 | Internal Med Progress Note ---
Date of Encounter: 09/25/17 Time of Encounter: 16:00 - Assessment and plan (1) Acute and chronic respiratory failure with hypoxia Current Visit: Yes Status: Acute Assessment and plan: Due to acute COPD exacerbation. Continue supplemental oxygen, wean down FiO2 as tolerated. Patient now is requiring continuous oxygen. (2) COPD with exacerbation Current Visit: Yes Status: Acute Assessment and plan: Patient was recently discharged after being treated for pneumonia. Rapid influenza antigen tested positive for influenza A. Continue Tamiflu. Continue empiric IV antibiotics for bronchitis. Pulmonology consult appreciated- recommend IV doxycycline, enteral steroids, continue bronchodilators and supplemental oxygen. Supportive care. (3) Pneumonia Current Visit: Yes Status: Ruled-out Assessment and plan: Less likely new episode of pneumonia. Recently treated for pneumonia. CT angiogram of chest shows improving bibasilar infiltrates, no pulmonary embolism. Broad-spectrum antibiotics discontinued per pulmonology recommendations. Continue supportive care, Tamiflu and doxycycline. Qualifiers: Pneumonia type: due to unspecified organism Laterality: bilateral Lung location: lower lobe of lung Qualified Code(s): J18.9 - Pneumonia, unspecified organism (4) Influenza Current Visit: Yes Status: Acute Assessment and plan: Plan as above. (5) HTN (hypertension) Current Visit: Yes Status: Chronic Qualifiers: Hypertension type: essential hypertension Qualified Code(s): I10 - Essential (primary) hypertension - Subjective Interval history: Reports exertional dyspnea and coughing bouts; no fever/chills, palpitations; had a recent hospitalization for Pneumonia; - Constitutional Vitals: Temp Pulse Resp BP Pulse Ox 98.1 F 91 18 126/79 92 09/26/17 11:07 09/26/17 11:07 09/26/17 11:12 09/26/17 11:07 09/26/17 11:12 General appearance: Present: cooperative, A&O X 3, answers questions appropriately - Respiratory Respiratory exam: Present: CTAB (coarse breath sounds B/L). Absent: accessory muscle use, rales, rhonchi, wheezes - Cardiovascular Cardiovascular exam: Present: RRR, +S1, +S2. Absent: diastolic murmur, gallop, rubs, systolic murmur - GI/Abdominal GI/Abdominal exam: Present: normal bowel sounds, soft, no peritoneal signs. Absent: distended, tenderness - Extremities Exam Extremities exam: Present: full ROM, warm, radial pulses palpable and symmetrical. Absent: calf tenderness, cyanotic, pedal edema - Neurological Exam Neurological exam: Present: CN II-XII intact, oriented X3, no focal deficits. Absent: pronater drift, facial droop, speech deficit Internal Medicine: Result - Labs CBC & Chem 7: 09/27/17 05:09 09/27/17 05:09 Labs: Short CBC 09/26/17 Range/Units 05:43 WBC 9.7 D (4.3-11.1) K/mcL Hgb 13.4 (11.5-15.4) g/dL Hct 39.9 (35.3-44.9) % Plt Count 200 (140-400) K/mcL Neutrophils # 8.3 (1.6-8.9) K/mcL BMP 09/26/17 05:43 Sodium 140 Potassium 3.5 Chloride 108 H Carbon Dioxide 26 BUN 11 Creatinine 0.63 Glucose 98 Calcium 8.9 Liver Function 09/26/17 Range/Units 05:43 Total Bilirubin 0.3 (0.3-1.0) mg/dL AST 21 (13-39) Units/L ALT 21 (7-52) Units/L Alkaline Phosphatase 42 (34-104) Units/L Albumin 3.1 L (3.5-5.7) g/dL - ABG Interpretation ABG results: PT/INR, D-dimer D-Dimer 357 ng/mLFEU (0-500) 09/24/17 16:02 Consult Discharge Plan - Plan Referrals: Freddy Swann Jr, MD [Primary Care Provider] - 10/04/17 10:00 am (Please follow up as schedule.. )
--- NOTE | 2017-09-26 13:16 | Internal Med Progress Note ---
Date of Encounter: 09/26/17 Time of Encounter: 13:14 - Assessment and plan (1) Acute and chronic respiratory failure with hypoxia Status: Acute Assessment and plan: Due to acute COPD exacerbation. Continue supplemental oxygen, wean down FiO2 as tolerated. Patient now is requiring continuous oxygen. Home oxygen evaluation for qualification for continuous oxygen prior to discharge. He she does not feel too good today. (2) COPD with exacerbation Status: Acute Assessment and plan: Patient was recently discharged after being treated for pneumonia. Rapid influenza antigen tested positive for influenza A. Continue Tamiflu. Continue empiric IV antibiotics for bronchitis. Pulmonology on board, continue IV doxycycline, enteral steroids, continue bronchodilators and supplemental oxygen. Supportive care. (3) Pneumonia Status: Ruled-out Assessment and plan: Less likely new episode of pneumonia. Recently treated for pneumonia. CT angiogram of chest shows improving bibasilar infiltrates, no pulmonary embolism. Broad-spectrum antibiotics discontinued per pulmonology recommendations. Continue supportive care, Tamiflu and doxycycline. Qualifiers: Pneumonia type: due to unspecified organism Laterality: bilateral Lung location: lower lobe of lung Qualified Code(s): J18.9 - Pneumonia, unspecified organism (4) Influenza Status: Acute Assessment and plan: Plan as above. (5) HTN (hypertension) Status: Chronic Qualifiers: Hypertension type: essential hypertension Qualified Code(s): I10 - Essential (primary) hypertension - Subjective Interval history: Reports having had a rough night with inability to sleep, IV that has gone bad, and missed breathing treatment for longer than usual due to wanting to rest; feels more short of breath today and notes hypoxia on pulsoximetry even on O2; able to take small walks but has exertional dyspnea; - Constitutional Vitals: Temp Pulse Resp BP Pulse Ox 98.1 F 91 18 126/79 92 09/26/17 11:07 09/26/17 11:07 09/26/17 11:12 09/26/17 11:07 09/26/17 11:12 General appearance: Present: cooperative, mild distress, A&O X 3, answers questions appropriately - Respiratory Respiratory exam: Present: CTAB (coarse rhonchurous breath sounds B/L). Absent : accessory muscle use, rales, rhonchi, wheezes - Cardiovascular Cardiovascular exam: Present: RRR, +S1, +S2. Absent: diastolic murmur, gallop, rubs, systolic murmur - GI/Abdominal GI/Abdominal exam: Present: normal bowel sounds, soft, no peritoneal signs. Absent: distended, tenderness - Extremities Exam Extremities exam: Present: full ROM, warm, radial pulses palpable and symmetrical. Absent: calf tenderness, cyanotic, pedal edema - Neurological Exam Neurological exam: Present: CN II-XII intact, oriented X3, no focal deficits. Absent: pronater drift, facial droop, speech deficit Internal Medicine: Result - Labs CBC & Chem 7: 09/28/17 05:20 09/28/17 05:20 Labs: Short CBC 09/26/17 Range/Units 05:43 WBC 9.7 D (4.3-11.1) K/mcL Hgb 13.4 (11.5-15.4) g/dL Hct 39.9 (35.3-44.9) % Plt Count 200 (140-400) K/mcL Neutrophils # 8.3 (1.6-8.9) K/mcL BMP 09/26/17 05:43 Sodium 140 Potassium 3.5 Chloride 108 H Carbon Dioxide 26 BUN 11 Creatinine 0.63 Glucose 98 Calcium 8.9 Liver Function 09/26/17 Range/Units 05:43 Total Bilirubin 0.3 (0.3-1.0) mg/dL AST 21 (13-39) Units/L ALT 21 (7-52) Units/L Alkaline Phosphatase 42 (34-104) Units/L Albumin 3.1 L (3.5-5.7) g/dL - ABG Interpretation ABG results: PT/INR, D-dimer D-Dimer 357 ng/mLFEU (0-500) 09/24/17 16:02 Consult Discharge Plan - Plan Instructions: Doxycycline (By mouth), Prednisone (By mouth) Referrals: Freddy Swann Jr, MD [Primary Care Provider] - 10/04/17 10:00 am (Please follow up as schedule.. ) Prescriptions: Doxycycline 100 mg PO BID #9 capsule predniSONE [PredniSONE] 40 mg PO DAILY 15 Days tablet
[2017-09-26] MEDS: Ibuprofen 400 MG TABLET PO PRN (20:57)
[2017-09-27] MEDS: *HR* Heparin 5,000 UNIT/ML VIAL SQ SCH ×3 (00:12→17:19)
[2017-09-27] MEDS: Doxycycline 100 MG in 0.9 % Sodium Chloride Mini Bag 100 ML IVPB SCH ×2 (00:24→14:27)
[2017-09-27] MEDS: Ipratropium/Albuterol Neb 3 ML IH SCH ×6 (03:57→23:05)
[2017-09-27 05:27] LABS: Basophils % 0.3 %; Eosinophils % 0.1 %; Hematocrit 42.2 % (35.3-44.9); Immature Granulocytes % 1.3 % (0-4); Lymphocytes # 1.1 K/mcL (0.6-4.6); Lymphocytes % 15.8 %; Mean Corpuscular HGB Conc 33.2 g/dL (31.6-35.5); Mean Corpuscular Hemoglobin 32.7 pg (28.0-33.3); Mean Corpuscular Volume 98.6 fL (83.0-100.0); Mean Platelet Volume 9.1 fL (9.4-12.4); Monocytes # 0.7 K/mcL (0.0-1.3); Monocytes % 9.2 %; Neutrophils # 5.2 K/mcL (1.6-8.9); Platelet Count 179 K/mcL (140-400); Red Blood Count 4.28 M/mcL (3.82-4.97); Red Cell Distribution Width 12.8 % (11.5-14.5); Segmented Neutrophils % 73.3 %
[2017-09-27 05:54] LABS: Alanine Aminotransferase 21 Units/L (7-52); Albumin 3.4 g/dL (3.5-5.7); Albumin/Globulin Ratio 1.5 (1.1-2.2); Alkaline Phosphatase 44 Units/L (34-104); Aspartate Amino Transferase 19 Units/L (13-39); BUN/Creatinine Ratio 31 (6-26); Bilirubin,Total 0.5 mg/dL (0.3-1.0); Blood Urea Nitrogen 15 mg/dL (8-23); Calcium 9.2 mg/dL (8.6-10.3); Carbon Dioxide 26 mEq/L (23-29); Chloride 105 mEq/L (98-107); Globulin 2.2 g/dL (2.4-3.5); Glucose 87 mg/dL (70-105); Osmolality,Calculated 286 (280-300); Potassium 3.5 mEq/L (3.5-5.1); Sodium 138 mEq/L (136-145); Total Protein 5.6 g/dL (6.4-8.9); eGFR For African Americans > 60 (> 60); eGFR For Non-African Americans > 60 (> 60)
[2017-09-27] MEDS: Budesonide/Formoterol 160/4.5 MDI IH SCH ×2 (08:16→20:39)
--- NOTE | 2017-09-27 09:49 | Internal Med Progress Note ---
Date of Encounter: 09/27/17 Time of Encounter: 09:48 - Assessment and plan (1) Acute and chronic respiratory failure with hypoxia Status: Acute Assessment and plan: Due to acute COPD exacerbation. Continue supplemental oxygen, wean down FiO2 as tolerated. Patient now is requiring continuous oxygen. Home oxygen evaluation for qualification for continuous oxygen prior to discharge. PT/OT evaluation. (2) COPD with exacerbation Status: Acute Assessment and plan: Patient was recently discharged after being treated for pneumonia. Rapid influenza antigen tested positive for influenza A. Continue Tamiflu. Continue empiric IV antibiotics for bronchitis. Pulmonology on board, continue IV doxycycline, enteral steroids, continue bronchodilators and supplemental oxygen. Supportive care. Patient reports antibiotic-associated diarrhea, will check C.diff toxin and start probiotics. (3) Influenza Status: Acute (4) HTN (hypertension) Status: Chronic Qualifiers: Hypertension type: essential hypertension Qualified Code(s): I10 - Essential (primary) hypertension - Subjective Interval history: Reports having had a better night last night. Improving cough and shortness of breath, however feels extremely tired with generalized weakness. Feels unsteady on her feet, unsafe to be discharged. No fever, chills, chest pain, syncope. - Constitutional Vitals: Temp Pulse Resp BP Pulse Ox 98.0 F 78 18 147/95 94 09/27/17 07:26 09/27/17 07:26 09/27/17 08:26 09/27/17 07:26 09/27/17 08:26 General appearance: Present: cooperative, A&O X 3, answers questions appropriately - Respiratory Respiratory exam: Present: CTAB (Bilateral coarse breath sounds). Absent: accessory muscle use, rales, rhonchi, wheezes - Cardiovascular Cardiovascular exam: Present: RRR, +S1, +S2. Absent: diastolic murmur, gallop, rubs, systolic murmur - GI/Abdominal GI/Abdominal exam: Present: normal bowel sounds, soft, no peritoneal signs. Absent: distended, tenderness - Extremities Exam Extremities exam: Present: full ROM, warm, radial pulses palpable and symmetrical. Absent: calf tenderness, cyanotic, pedal edema - Neurological Exam Neurological exam: Present: CN II-XII intact, oriented X3, no focal deficits. Absent: pronater drift, facial droop, speech deficit Internal Medicine: Result - Labs CBC & Chem 7: 09/28/17 05:20 09/28/17 05:20 Labs: Short CBC 09/27/17 Range/Units 05:09 WBC 7.1 (4.3-11.1) K/mcL Hgb 14.0 (11.5-15.4) g/dL Hct 42.2 (35.3-44.9) % Plt Count 179 (140-400) K/mcL Neutrophils # 5.2 (1.6-8.9) K/mcL BMP 09/27/17 05:09 Sodium 138 Potassium 3.5 Chloride 105 Carbon Dioxide 26 BUN 15 Creatinine 0.49 L Glucose 87 Calcium 9.2 Liver Function 09/27/17 Range/Units 05:09 Total Bilirubin 0.5 (0.3-1.0) mg/dL AST 19 (13-39) Units/L ALT 21 (7-52) Units/L Alkaline Phosphatase 44 (34-104) Units/L Albumin 3.4 L (3.5-5.7) g/dL - ABG Interpretation ABG results: PT/INR, D-dimer D-Dimer 357 ng/mLFEU (0-500) 09/24/17 16:02 Consult Discharge Plan - Plan Instructions: Doxycycline (By mouth), Prednisone (By mouth) Referrals: Freddy Swann Jr, MD [Primary Care Provider] - 10/04/17 10:00 am (Please follow up as schedule.. ) Prescriptions: Doxycycline 100 mg PO BID #9 capsule predniSONE [PredniSONE] 40 mg PO DAILY 15 Days tablet
[2017-09-27] MEDS: LOTEPREDNOL 0.2% OP SCH ×2 (10:01→20:06)
[2017-09-27] MEDS: Fluticasone Propionate Nasal 50 MCG/SPRAY BOTTLE NS SCH ×2 (10:01→20:05)
[2017-09-27] MEDS: Multivit/Ca/Min/Fe/FA 1 TAB TABLET PO SCH (10:02)
[2017-09-27] MEDS: Oseltamivir Phosphate 30 MG CAPSULE PO SCH ×2 (10:02→20:07)
[2017-09-27] MEDS: Lactobacillus 1 EACH CAP.SPRINK PO SCH ×2 (10:02→20:07)
[2017-09-27] MEDS: predniSONE 20 MG TABLET PO SCH (10:02)
[2017-09-27] MEDS: (Roflumilast [Daliresp] 500 MCG) PO SCH (10:03)
[2017-09-27] MEDS: Roflumilast [Daliresp] 500 MCG PO SCH (11:34)
[2017-09-27] MEDS: Ibuprofen 400 MG TABLET PO PRN (19:30)
--- NOTE | 2017-09-27 22:52 | Pulmonology Progress Note ---
Date of Encounter: 09/27/17 Time of Encounter: 14:00 Assessment and Plan (1) COPD with exacerbation Current Visit: Yes Status: Acute Patient has viral exacerbation of COPD improving with tamiflu , bronchodilators and steroids . To continue Doxycycline to complete 5 day course on discharge , will need steroid taper 40 mg x 5 days , 30 mg x 5 days , 20 mg x 7 days then to her chronic dose of 10 mg on discharge . But continue the bronchodilators and steroids . (2) Acute and chronic respiratory failure Current Visit: Yes Status: Acute On discharge to walk her and see how much O2 she needs , will needs O2 on exercise. Qualifiers: Respiratory failure complication: hypoxia Qualified Code(s): J96.21 - Acute and chronic respiratory failure with hypoxia (3) Influenza Current Visit: Yes Status: Acute To complete total course of Tamiflu Subjective Principal diagnosis: COPD exacerbation Interval history: 66 year old female with severe COPD presented with Viral exacerbation of COPD , patient is feeling better today , cough and sputum production is at baseline . While on exertion patient is still short of breadth . Objective PUL Vital signs: Last Vital Signs Temp 98.0 F 09/27/17 20:56 Pulse 89 09/27/17 20:56 Resp 20 09/27/17 20:56 BP 113/73 09/27/17 20:56 Pulse Ox 94 09/27/17 20:56 Auscultation: bilateral: clear Results - Laboratory Findings CBC and BMP: 09/27/17 05:09 09/27/17 05:09 PT/INR, D-dimer D-Dimer 357 ng/mLFEU (0-500) 09/24/17 16:02 Abnormal lab findings: Abnormal lab results MPV 9.1 fL (9.4-12.4) L 09/27/17 05:09 Creatinine 0.49 mg/dL (0.60-1.20) L 09/27/17 05:09 BUN/Creatinine Ratio 31 (6-26) H 09/27/17 05:09 Lactic Acid 3.2 mmol/L (0.5-2.2) H 09/24/17 16:41 Serum Total Protein 5.6 g/dL (6.4-8.9) L 09/27/17 05:09 Albumin 3.4 g/dL (3.5-5.7) L 09/27/17 05:09 Globulin 2.2 g/dL (2.4-3.5) L 09/27/17 05:09 HDL Cholesterol 75 mg/dL (40-59) H 09/25/17 04:50 Influenza A (H3) PCR DETECTED (Not Detect) A 09/24/17 13:54 - Microbiology Findings Microbiology Findings: Microbiology, Last 48 Hours 09/26/17 11:00 Streptococcus pneumoniae Antigen (M - Final Urine,Clean Catch 09/26/17 11:00 Legionella Antigen - Final Urine,Clean Catch - Clinical Findings Intake & Output: Intake & Output 09/27/17 09/27/17 09/27/17 07:59 15:59 23:59 Intake Total 100 / 100 0 / 0 340 / 340 Output Total 0 / 0 Balance 100 / 100 0 / 0 340 / 340 Weight 64.92 kg Consult Discharge Plan - Plan Referrals: Freddy Swann Jr, MD [Primary Care Provider] - 10/04/17 10:00 am (Please follow up as schedule.. )
[2017-09-28] MEDS: *HR* Heparin 5,000 UNIT/ML VIAL SQ SCH ×3 (00:26→19:12)
[2017-09-28] MEDS: Doxycycline 100 MG in 0.9 % Sodium Chloride Mini Bag 100 ML IVPB SCH ×3 (03:07→19:11)
[2017-09-28] MEDS: Ipratropium/Albuterol Neb 3 ML IH SCH ×5 (04:31→20:00)
[2017-09-28 05:44] LABS: Basophils % 0.5 %; Eosinophils % 0.3 %; Hematocrit 42.2 % (35.3-44.9); Immature Granulocytes % 2.1 % (0-4); Lymphocytes # 1.4 K/mcL (0.6-4.6); Lymphocytes % 22.5 %; Mean Corpuscular HGB Conc 33.2 g/dL (31.6-35.5); Mean Corpuscular Hemoglobin 32.6 pg (28.0-33.3); Mean Corpuscular Volume 98.1 fL (83.0-100.0); Mean Platelet Volume 9.3 fL (9.4-12.4); Monocytes # 0.4 K/mcL (0.0-1.3); Monocytes % 7.3 %; Neutrophils # 4.1 K/mcL (1.6-8.9); Nucleated Red Blood Cells 0.3 /100 WBC (0); Platelet Count 168 K/mcL (140-400); Red Cell Distribution Width 12.8 % (11.5-14.5); Segmented Neutrophils % 67.3 %
[2017-09-28 05:57] LABS: Alanine Aminotransferase 28 Units/L (7-52); Albumin 3.3 g/dL (3.5-5.7); Albumin/Globulin Ratio 1.4 (1.1-2.2); Alkaline Phosphatase 45 Units/L (34-104); Aspartate Amino Transferase 23 Units/L (13-39); BUN/Creatinine Ratio 19 (6-26); Bilirubin,Total 0.5 mg/dL (0.3-1.0); Blood Urea Nitrogen 14 mg/dL (8-23); Carbon Dioxide 27 mEq/L (23-29); Chloride 104 mEq/L (98-107); Globulin 2.4 g/dL (2.4-3.5); Glucose 83 mg/dL (70-105); Osmolality,Calculated 284 (280-300); Potassium 3.5 mEq/L (3.5-5.1); Sodium 137 mEq/L (136-145); Total Protein 5.7 g/dL (6.4-8.9); eGFR For African Americans > 60 (> 60); eGFR For Non-African Americans > 60 (> 60)
[2017-09-28] MEDS: Budesonide/Formoterol 160/4.5 MDI IH SCH ×2 (07:47→20:00)
[2017-09-28] MEDS: predniSONE 20 MG TABLET PO SCH (09:35)
[2017-09-28] MEDS: Lactobacillus 1 EACH CAP.SPRINK PO SCH ×2 (09:36→21:40)
[2017-09-28] MEDS: Multivit/Ca/Min/Fe/FA 1 TAB TABLET PO SCH (09:37)
[2017-09-28] MEDS: Oseltamivir Phosphate 30 MG CAPSULE PO SCH ×2 (09:37→21:41)
[2017-09-28] MEDS: LOTEPREDNOL 0.2% OP SCH ×2 (09:39→21:41)
[2017-09-28] MEDS: Fluticasone Propionate Nasal 50 MCG/SPRAY BOTTLE NS SCH ×2 (09:39→21:41)
[2017-09-28] MEDS: Roflumilast [Daliresp] 500 MCG PO SCH (09:40)
--- NOTE | 2017-09-28 11:47 | Internal Med Progress Note ---
Date of Encounter: 09/28/17 Time of Encounter: 11:45 - Assessment and plan (1) Acute and chronic respiratory failure with hypoxia Status: Acute Assessment and plan: Due to acute COPD exacerbation. Continue supplemental oxygen. Home oxygen evaluation completed. Patient would benefit from continuous supplemental oxygen via nasal cannula at 2 L/m. She is noted to be ambulatory at home, would benefit from portable home oxygen. PT/OT evaluation noted, recommended home health PT. (2) COPD with exacerbation Status: Acute Assessment and plan: Acute COPD likely due to viral bronchitis. Rapid influenza antigen tested positive for influenza A. completed a course of Tamiflu.. Continue empiric IV antibiotics for bronchitis. Pulmonology on board, continue IV doxycycline, enteral steroids, continue bronchodilators and supplemental oxygen. Supportive care. Improved diarrhea. Medically stable. (3) Influenza Status: Acute (4) HTN (hypertension) Status: Chronic Qualifiers: Hypertension type: essential hypertension Qualified Code(s): I10 - Essential (primary) hypertension - Subjective Interval history: Reports feeling better, had a good restful night; improving cough, wheezing and dyspnea; requires continuous O2, which has been set up; no fever/chills; - Constitutional Vitals: Temp Pulse Resp BP Pulse Ox 97.7 F 80 18 121/79 91 09/28/17 07:21 09/28/17 07:21 09/28/17 11:23 09/28/17 07:21 09/28/17 11:23 General appearance: Present: cooperative, A&O X 3, answers questions appropriately - Respiratory Respiratory exam: Present: CTAB (coarse breath sounds B/L). Absent: accessory muscle use, rales, rhonchi, wheezes - Cardiovascular Cardiovascular exam: Present: RRR, +S1, +S2. Absent: diastolic murmur, gallop, rubs, systolic murmur - GI/Abdominal GI/Abdominal exam: Present: normal bowel sounds, soft, no peritoneal signs. Absent: distended, tenderness Internal Medicine: Result - Labs CBC & Chem 7: 09/28/17 05:20 09/28/17 05:20 Labs: Short CBC 09/28/17 Range/Units 05:20 WBC 6.1 (4.3-11.1) K/mcL Hgb 14.0 (11.5-15.4) g/dL Hct 42.2 (35.3-44.9) % Plt Count 168 (140-400) K/mcL Neutrophils # 4.1 (1.6-8.9) K/mcL BMP 09/28/17 05:20 Sodium 137 Potassium 3.5 Chloride 104 Carbon Dioxide 27 BUN 14 Creatinine 0.72 Glucose 83 Calcium 9.0 Liver Function 09/28/17 Range/Units 05:20 Total Bilirubin 0.5 (0.3-1.0) mg/dL AST 23 (13-39) Units/L ALT 28 (7-52) Units/L Alkaline Phosphatase 45 (34-104) Units/L Albumin 3.3 L (3.5-5.7) g/dL - ABG Interpretation ABG results: PT/INR, D-dimer D-Dimer 357 ng/mLFEU (0-500) 09/24/17 16:02 Consult Discharge Plan - Plan Instructions: Doxycycline (By mouth), Prednisone (By mouth) Referrals: Freddy Swann Jr, MD [Primary Care Provider] - 10/04/17 10:00 am (Please follow up as schedule.. ) Prescriptions: Doxycycline 100 mg PO BID #9 capsule predniSONE [PredniSONE] 40 mg PO DAILY 15 Days tablet
--- NOTE | 2017-09-28 12:29 | Pulmonology Progress Note ---
Date of Encounter: 09/28/17 Time of Encounter: 11:15 Assessment and Plan (1) COPD with exacerbation Current Visit: Yes Status: Acute Patient has viral exacerbation of COPD improving with tamiflu , bronchodilators and steroids . To continue Doxycycline to complete 5 day course on discharge , will need steroid taper 40 mg x 5 days , 30 mg x 5 days , 20 mg x 7 days then to her chronic dose of 10 mg on discharge . But continue the bronchodilators and steroids for now . To send her home on the home bronchodilator regimen . (2) Acute and chronic respiratory failure Current Visit: Yes Status: Acute On discharge to walk her and see how much O2 she needs , will needs O2 on exercise. Qualifiers: Respiratory failure complication: hypoxia Qualified Code(s): J96.21 - Acute and chronic respiratory failure with hypoxia (3) Influenza Current Visit: Yes Status: Acute To complete total course of Tamiflu Subjective Principal diagnosis: COPD exacerbation Interval history: 66 year old female with severe COPD presented with Viral exacerbation of COPD , patient is feeling better today , cough and sputum production is at baseline While on exertion patient is still short of breadth but with oxygen she feels less short of breadth wants to go home tomorrow since she will have help at home. Objective PUL Vital signs: Last Vital Signs Temp 97.7 F 09/28/17 07:21 Pulse 80 09/28/17 07:21 Resp 18 09/28/17 11:23 BP 121/79 09/28/17 07:21 Pulse Ox 91 09/28/17 11:23 Auscultation: bilateral: clear Results - Laboratory Findings CBC and BMP: 09/28/17 05:20 09/28/17 05:20 PT/INR, D-dimer D-Dimer 357 ng/mLFEU (0-500) 09/24/17 16:02 Abnormal lab findings: Abnormal lab results MPV 9.3 fL (9.4-12.4) L 09/28/17 05:20 Nucleated RBCs/100 WBC 0.3 /100 WBC (0) H 09/28/17 05:20 Lactic Acid 3.2 mmol/L (0.5-2.2) H 09/24/17 16:41 Serum Total Protein 5.7 g/dL (6.4-8.9) L 09/28/17 05:20 Albumin 3.3 g/dL (3.5-5.7) L 09/28/17 05:20 HDL Cholesterol 75 mg/dL (40-59) H 09/25/17 04:50 Influenza A (H3) PCR DETECTED (Not Detect) A 09/24/17 13:54 - Microbiology Findings Microbiology Findings: Microbiology, Last 48 Hours 09/26/17 11:00 Streptococcus pneumoniae Antigen (M - Final Urine,Clean Catch 09/26/17 11:00 Legionella Antigen - Final Urine,Clean Catch - Clinical Findings Intake & Output: Intake & Output 09/27/17 09/28/17 09/28/17 23:59 07:59 15:59 Intake Total 1140 / 1140 1000 / 1000 360 / 360 Output Total 400 / 400 Balance 1140 / 1140 600 / 600 360 / 360 Weight 65.8 kg Consult Discharge Plan - Plan Referrals: Freddy Swann Jr, MD [Primary Care Provider] - 10/04/17 10:00 am (Please follow up as schedule.. )
[2017-09-28] MEDS: Ibuprofen 400 MG TABLET PO PRN (21:40)
[2017-09-29] MEDS: Ipratropium/Albuterol Neb 3 ML IH SCH ×4 (00:06→11:29)
[2017-09-29] MEDS: Doxycycline 100 MG in 0.9 % Sodium Chloride Mini Bag 100 ML IVPB SCH (00:57)
[2017-09-29] MEDS: *HR* Heparin 5,000 UNIT/ML VIAL SQ SCH ×2 (00:57→07:21)
[2017-09-29] MEDS: Multivit/Ca/Min/Fe/FA 1 TAB TABLET PO SCH (07:20)
[2017-09-29] MEDS: Oseltamivir Phosphate 30 MG CAPSULE PO SCH (07:20)
[2017-09-29] MEDS: Lactobacillus 1 EACH CAP.SPRINK PO SCH (07:20)
[2017-09-29] MEDS: LOTEPREDNOL 0.2% OP SCH (07:20)
[2017-09-29] MEDS: Fluticasone Propionate Nasal 50 MCG/SPRAY BOTTLE NS SCH (07:20)
[2017-09-29] MEDS: Roflumilast [Daliresp] 500 MCG PO SCH (07:21)
[2017-09-29] MEDS: Budesonide/Formoterol 160/4.5 MDI IH SCH (08:06)
[2017-09-29] MEDS ORDERED: predniSONE 20 MG TABLET PO SCH (09:00)
--- NOTE | 2017-09-29 09:01 | Pulmonology Progress Note ---
Date of Encounter: 09/29/17 Time of Encounter: 08:50 Assessment and Plan (1) COPD with exacerbation Status: Acute Patient has viral exacerbation of COPD improving with tamiflu , bronchodilators and steroids . To continue Doxycycline to complete 4 day course on discharge , will need steroid taper 40 mg x 5 days , 30 mg x 5 days , 20 mg x 7 days then to her chronic dose of 10 mg on discharge .To send her home on the home bronchodilator regimen . (2) Acute and chronic respiratory failure Status: Acute On discharge to walk her and see how much O2 she needs , will needs O2 on exercise. Qualifiers: Respiratory failure complication: hypoxia Qualified Code(s): J96.21 - Acute and chronic respiratory failure with hypoxia (3) Influenza Status: Acute Tamiflu course completed . Subjective Principal diagnosis: COPD exacerbation Interval history: 66 year old female with severe COPD presented with Viral exacerbation of COPD , patient is feeling better today , cough and sputum production is at baseline While on exertion patient is still short of breadth but with oxygen she feels better . Today she says is ready to go home Objective PUL Vital signs: Last Vital Signs Temp 97.8 F 09/29/17 07:58 Pulse 83 09/29/17 07:58 Resp 17 09/29/17 08:07 BP 115/77 09/29/17 07:58 Pulse Ox 94 09/29/17 08:07 Auscultation: bilateral: clear Results - Laboratory Findings CBC and BMP: 09/28/17 05:20 09/28/17 05:20 PT/INR, D-dimer D-Dimer 357 ng/mLFEU (0-500) 09/24/17 16:02 Abnormal lab findings: Abnormal lab results MPV 9.3 fL (9.4-12.4) L 09/28/17 05:20 Nucleated RBCs/100 WBC 0.3 /100 WBC (0) H 09/28/17 05:20 Lactic Acid 3.2 mmol/L (0.5-2.2) H 09/24/17 16:41 Serum Total Protein 5.7 g/dL (6.4-8.9) L 09/28/17 05:20 Albumin 3.3 g/dL (3.5-5.7) L 09/28/17 05:20 HDL Cholesterol 75 mg/dL (40-59) H 09/25/17 04:50 Influenza A (H3) PCR DETECTED (Not Detect) A 09/24/17 13:54 - Clinical Findings Intake & Output: Intake & Output 09/28/17 09/29/17 09/29/17 23:59 07:59 15:59 Intake Total 340 / 340 Output Total 700 / 700 Balance -360 / -360 Weight 63.775 kg Consult Discharge Plan - Plan Instructions: Doxycycline (By mouth), Prednisone (By mouth) Referrals: Freddy Swann Jr, MD [Primary Care Provider] - 10/04/17 10:00 am (Please follow up as schedule.. ) Prescriptions: Doxycycline 100 mg PO BID #9 capsule predniSONE [PredniSONE] 40 mg PO DAILY 15 Days tablet
[2017-09-29 11:56] VITALS: BP 119/75
--- NOTE | 2017-09-29 12:51 | Discharge Summary ---
Date of Encounter: 09/29/17 Time of Encounter: 12:43 - Discharge Diagnosis (1) Acute and chronic respiratory failure with hypoxia Priority: Primary Status: Acute (2) COPD with exacerbation Priority: Primary Status: Acute (3) Pneumonia Priority: Primary Status: Ruled-out Qualifiers: Pneumonia type: due to unspecified organism Laterality: bilateral Lung location: lower lobe of lung Qualified Code(s): J18.9 - Pneumonia, unspecified organism (4) Influenza Priority: Primary Status: Acute (5) HTN (hypertension) Priority: Secondary Status: Chronic Qualifiers: Hypertension type: essential hypertension Qualified Code(s): I10 - Essential (primary) hypertension - Discharge Medications Prescriptions: Doxycycline 100 mg PO BID #9 capsule predniSONE [PredniSONE] 40 mg PO DAILY 15 Days tablet Home Medications: Albuterol Sulfate [Albuterol Inhaler] 2 puff IH Q4HR PRN 07/08/15 [History] Budesonide/Formoterol 160/4.5 [Symbicort 160/4.5] 2 puff IH BIDR 07/08/15 [ History] Calcium Carbonate 1,200 mg PO DAILY 07/08/15 [History] Ipratropium/Albuterol Neb [Duoneb] 3 ml IH Q6HR PRN 07/08/15 [History] Multivitamin [Flintstones] 1 each PO DAILY 07/08/15 [History] Biotin 1 tab PO DAILY 08/28/16 [History] Fluticasone Propionate Nasal [Flonase] 1 spray NS BID 08/28/16 [History] Potassium 99 mg PO DAILY 08/28/16 [History] Triamterene/Hydrochlorothiazid [Triamterene-Hctz 37.5-25 mg Cp] 1 tab PO DAILY 08/28/16 [History] Umeclidinium [place] [Incruse Ellipta] 1 puff IH DAILY 08/28/16 [History] Loteprednol Etabonate [Alrex] 1 drop BOTH EYES BID 09/14/17 [History] Roflumilast [Daliresp] 500 mcg PO DAILY 09/14/17 [History] Azithromycin 250 mg PO DAILY #0 09/29/17 [Rx] Doxycycline 100 mg PO BID #9 capsule 09/29/17 [Rx] Patient Taking Own Medication 1 each OP BID each 09/29/17 [Rx] predniSONE [PredniSONE] 40 mg PO DAILY 15 Days tablet 09/29/17 [Rx] Allergies/Adverse Reactions: 3 Allergy/AdvReac Type Severity Reaction Status Date / Time octinoxate Allergy Mild Rash Verified 09/24/17 14:40 aspirin [From [facility]] AdvReac Mild Nausea Verified 09/24/17 14:40 citric acid AdvReac Mild Nausea Verified 09/24/17 14:40 [From [facility]] sodium bicarbonate AdvReac Unknown Gastrointestinal Verified 09/24/17 14:40 [From [facility]] Upset Date of admission: 09/24/17 18:07 Primary care physician: Freddy Swann Jr, MD Consults: 09/25/17 13:05 Consult to Physical Therapy [CONS] Routine Comment: Evaluate, develop and implement POC Reason for Consult: weakness Discharging clinician: Emely Petty Anticipated date of discharge: 09/29/17 - Patient Status Disposition: Home Health Service Condition: Fair Functional capacity at discharge: independent ambulation Overall status at discharge: patient is progressing back to baseline - Discharge Instructions Instructions: Doxycycline (By mouth), Prednisone (By mouth) Follow Up With: Freddy Swann Jr, MD [Primary Care Provider] - 10/04/17 10:00 am (Please follow up as schedule.. ) - Diet and Activity Activity: as per physical therapy, wear oxygen at all times Diet: advance to your usual diet Hospital course: Ms. Mobley is a 66 year old female with history of severe COPD, who was admitted with worsening cough and shortness of breath and generalized weakness. Patient was recently discharged from our hospital after being treated for pneumonia. She was started on broad-spectrum IV antibiotics for possible pneumonia, which is now thought to be less likely. She tested positive for influenza A and likely has acute exacerbation of COPD due to viral bronchitis. She completed a course of Tamiflu. She has been started on bronchodilators, supplemental oxygen, IV doxycycline for possible bronchitis. Pulmonology has been on board, agreed with this management. Home oxygen evaluation was completed and patient qualifies for continuous oxygen at 2 L/m via nasal cannula, she is noted to be ambulatory at home and would benefit from portable home oxygen. Patient is currently breathing much better, labs show no acute abnormality and she is medically stable for discharge with outpatient follow-up. - Time Spent with Patient Total time spent providing and/or coordinating discharge services: Greater than 30 minutes (45 min) - Constitutional Vitals: Temp Pulse Resp BP Pulse Ox 97.4 F L 93 16 119/75 90 09/29/17 11:55 09/29/17 11:55 09/29/17 11:55 09/29/17 11:55 09/29/17 11:55 General appearance: Present: cooperative, A&O X 3, answers questions appropriately - Respiratory Respiratory exam: Present: CTAB. Absent: accessory muscle use, rales, rhonchi, wheezes
--- NOTE | 2017-09-29 12:52 | Physician Discharge Referral ---
Home Health/Hosp Referral Info Transfer to: Home Health Attending Provider: Emely Petty Provider in Charge Post Discharge: PCP - Diagnosis (1) Acute and chronic respiratory failure with hypoxia Priority: Primary Status: Acute (2) COPD with exacerbation Priority: Primary Status: Acute (3) Pneumonia Priority: Primary Status: Ruled-out (4) Influenza Priority: Primary Status: Acute (5) HTN (hypertension) Priority: Secondary Status: Chronic - Respiratory Orders Oxygen / L per min (2L/min via [place]) Smoking Cessation: Smoking cessation has been advised. For more information, call the [place] Quit Line at [phone]-NOW. - Diet/Nutrition Diet/Nutrition Orders: Cardiac - Activity Activity Orders: Ambulate - Services Needed Following services are medically necessary services: Nursing, Physical Therapy, Occupational Therapy - Transfer Medications Prescriptions: Doxycycline 100 mg PO BID #9 capsule predniSONE [PredniSONE] 40 mg PO DAILY 15 Days tablet Home Medications: Albuterol Sulfate [Albuterol Inhaler] 2 puff IH Q4HR PRN 07/08/15 [History] Budesonide/Formoterol 160/4.5 [Symbicort 160/4.5] 2 puff IH BIDR 07/08/15 [ History] Calcium Carbonate 1,200 mg PO DAILY 07/08/15 [History] Ipratropium/Albuterol Neb [Duoneb] 3 ml IH Q6HR PRN 07/08/15 [History] Multivitamin [Flintstones] 1 each PO DAILY 07/08/15 [History] Biotin 1 tab PO DAILY 08/28/16 [History] Fluticasone Propionate Nasal [Flonase] 1 spray NS BID 08/28/16 [History] Potassium 99 mg PO DAILY 08/28/16 [History] Triamterene/Hydrochlorothiazid [Triamterene-Hctz 37.5-25 mg Cp] 1 tab PO DAILY 08/28/16 [History] Umeclidinium [place] [Incruse Ellipta] 1 puff IH DAILY 08/28/16 [History] Loteprednol Etabonate [Alrex] 1 drop BOTH EYES BID 09/14/17 [History] Roflumilast [Daliresp] 500 mcg PO DAILY 09/14/17 [History] Azithromycin 250 mg PO DAILY #0 09/29/17 [Rx] Doxycycline 100 mg PO BID #9 capsule 09/29/17 [Rx] Patient Taking Own Medication 1 each OP BID each 09/29/17 [Rx] predniSONE [PredniSONE] 40 mg PO DAILY 15 Days tablet 09/29/17 [Rx] Allergies/Adverse Reactions: 3 Allergy/AdvReac Type Severity Reaction Status Date / Time octinoxate Allergy Mild Rash Verified 09/24/17 14:40 aspirin [From [facility]] AdvReac Mild Nausea Verified 09/24/17 14:40 citric acid AdvReac Mild Nausea Verified 09/24/17 14:40 [From [facility]] sodium bicarbonate AdvReac Unknown Gastrointestinal Verified 09/24/17 14:40 [From [facility]] Upset Certification: Further, I certify that my clinical findings support that this patient is homebound (i.e. absences from home require considerable and taxing effort and are for medical reasons or scientology services or infrequently or short duration when for other reasons) because: Homebound Reason: Leaving home requires considerable and taxing effort due to condition Attestation: My signature below is to certify that this patient is under my care and that I, or nurse practitioner, or a physician's sales assistants and salespersons working with me, has a face-to -face encounter with this patient.
== END 2017-09-29 15:15 | disposition home health service (06) | DRG 871 ==
LOC: EMEROO 12:54 → 2ANU 12:54 → SUATTDRO 18:07 → 2ANU 18:20
PROVIDERS: ADMIT Internal Medicine; ATTEND Internal Medicine